=== PATIENT | male | born 1935 | race Caucasian/White ===

== ENCOUNTER 2016-07-01 05:57 | Inpatient (IN) | payer MEDICARE, OTHER ==
--- NOTE | 2016-06-19 09:53 | HP ---
PREOPERATIVE HISTORY AND PHYSICAL: DATE OF ADMISSION/SURGERY: 07/01/16 DATE OF OFFICE VISIT: 06/18/16 ATTENDING SURGEON: Dr. Mendoza. PROCEDURE: Right total hip replacement. CHIEF COMPLAINT: Right hip pain. HISTORY OF PRESENT ILLNESS: Mr. Ricardo is a 80-year-old gentleman who was approximately 1 year of increasing severe right hip pain. The patient has failed conservative measures and therefore has agreed to undergo a right total hip replacement with Dr. Mendoza on 07/01/16. PAST MEDICAL HISTORY: 1. Hypercholesterolemia. 2. BPH. 3. Osteoarthritis. 4. Hypothyroidism. 5. 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 6. History of hyponatremia. PAST SURGICAL HISTORY: 1. Hernia repair on the right. 2. Cataract removal on the right. 3. Hemorrhoidectomy. MEDICATIONS: \E\ 1. Naproxen 250 mg only tabs by mouth 2 times a day as needed for pain with food. 2. Levothyroxine sodium 50 mcg 1 by mouth everyday. 3. Atorvastatin calcium 10 mg take 1 by mouth at bedtime. 4. Finasteride 5 mg 1 tablet in the evening. 5. Tamsulosin 4 mg 1 by mouth daily. 6. Multivitamin 1 by mouth daily. 7. Tylenol PM Extra Strength 500/25 mg by mouth every night at bedtime as needed. 8. Glucosamine chondroitin sulfate 1000 mg 1 tablet by mouth daily. ALLERGIES: No known drug allergies. FAMILY HISTORY: Negative. SOCIAL HISTORY: Lives with , retired professor. The patient is a former. Smoked and quit actually 15 years ago. Occasionally continues alcohol. Denies illicit drug use. REVIEW OF SYSTEMS: General: Negative for fevers, chills, night sweats. No known anesthesia problems. HEENT: Negative for headache, lightheadedness or syncopal episodes. Integumentary: Negative for abrasions, lesions or open wounds. Cardiovascular: Negative for chest pain, palpitations or edema. Negative for hypertension. Pulmonary: Negative for shortness of breath with exertion, cough or COPD. GI: Negative for nausea, vomiting, diarrhea, constipation or GERD. : Negative for nocturia, urinary frequency, urgency or history of UTI or kidney problems. Positive for BPH. Musculoskeletal: Positive for right hip pain. Neuro: Negative for paresthesia, history of seizure, stroke or epilepsy. Endocrine: Negative for diabetes or thyroid disease. Hematologic: Negative for easy bruising, anemia, excessive bleeding, or history of DVTs. Infectious Disease: Negative for history of MRSA, hep C or HIV. PHYSICAL EXAMINATION GENERAL: A well-developed, well-nourished male in no acute distress. VITAL SIGNS: Height 64.5, weight 157, pulse 80, blood pressure 140/90, and BMI 25.7. HEENT: Normocephalic, atraumatic. PERRLA. Throat: Clear. NECK: Supple. PULMONARY: Lungs are clear to auscultation bilaterally. No wheezes, rhonchi or rales. CARDIAC: Regular rate and rhythm. S1, S2. No murmurs, rubs or gallops. No edema. ABDOMEN: Positive bowel sounds, soft and nontender. NEUROLOGIC: Alert and oriented x3. Cranial nerves grossly intact. Sensation is intact to light touch. MUSCULOSKELETAL: Right lower extremity skin is intact. Hip is nontender. Flexion to 110 degrees. Internal rotation is 0 degrees. External rotation is 35 degrees with significant groin pain. +5/5 dorsiflexion, and plantar flexion at the ankle, +2 dorsalis pedis pulse. Sensation intact distally to light touch. DIAGNOSTIC STUDIES/LABORATORY DATA: Multiple views of the right hip revealed [id number]-[id number] degenerative osteoarthritis with joint space narrowing, osteophyte formation and subchondral sclerosis. PLAN: The patient is scheduled to undergo a right total hip replacement with Dr. Mendoza on 07/01/16. He will return to the office 10 to 14 days postoperative followup for suture removal. A prescription for Percocet was e- prescribed to the patient's pharmacy for postoperative pain management. Prescription for Colace was sent for as needed for constipation. Prescription for Coumadin was sent postoperative DVTs prophylaxis. ELLIOT BENDER [id number]/[facility] #: [id number] [place]
[2016-07-01] MEDS ORDERED: Buffered Lidocaine 1% SYR 3ML* 3 ML/SYR SYRINGE INTRADERM ONE (06:00)
[2016-07-01] MEDS ORDERED: Famotidine IV* 10 MG/ML 2 ML (20 mg) IV ONE (06:00)
[2016-07-01] MEDS ORDERED: Scopolamine 1.5 mg* PATCH TRANSDERM ONE (06:00)
[2016-07-01] MEDS ORDERED: Dexamethasone IV* 4 MG/ML 1 ML (4 MG) IV SLOW PU ONE (06:00)
[2016-07-01] MEDS ORDERED: Famotidine IV* 10 MG/ML 2 ML (20 mg) ONE (06:26)
[2016-07-01] MEDS ORDERED: Scopolamine 1.5 mg* PATCH ONE (06:26)
[2016-07-01] MEDS ORDERED: Buffered Lidocaine 1% SYR 3ML* 3 ML/SYR SYRINGE ONE (06:26)
[2016-07-01] MEDS ORDERED: ceFAZolin 2 GM PREMIX (*) 2 GM/50 ML BAG IVPB ONE (06:26)
[2016-07-01] MEDS ORDERED: Dexamethasone IV* 4 MG/ML 1 ML (4 MG) ONE (06:26)
[2016-07-01] MEDS ORDERED: Midazolam* 1 MG/ML 5 ML VIAL (5 MG) ONE (07:19)
[2016-07-01] MEDS ORDERED: Morphine PF AMP (0.5MG/ML)* 5 MG/10 ML AMP ONE (07:19)
[2016-07-01] MEDS ORDERED: fentaNYL* 50 MCG/ML 2 ML VIAL (100 MCG VIAL) ONE (07:19)
[2016-07-01] MEDS ORDERED: Phenylephrine IV* 40 MCG/ML 10 ML SYRINGE ONE (07:49)
[2016-07-01] MEDS ORDERED: EPHEDrine (Pressors)* 50 MG/ML VIAL ONE (08:12)
[2016-07-01] MEDS ORDERED: Atropine 1MG/ML INJ* 1 ML VIAL ONE (08:16)
[2016-07-01] MEDS ORDERED: PROCHLORPERAZINE INJ 5 MG/ML 2 ML VIAL IV PRN ×2 (08:50→08:53)
[2016-07-01] MEDS ORDERED: fentaNYL* 50 MCG/ML 2 ML VIAL (100 MCG VIAL) IV PRN (08:50)
[2016-07-01] MEDS ORDERED: oxyCODONE TAB* 5 MG TAB PO PRN ×2 (08:50→08:53)
[2016-07-01] MEDS ORDERED: Acetaminophen IV 1GM/100ML * 100 ML IVPB ONE (08:50)
[2016-07-01] MEDS ORDERED: Naloxone* 0.4 MG/ML 1 ML VIAL IV PRN (08:53)
[2016-07-01] MEDS ORDERED: Nalbuphine* 20 MG/ML 1 ML VIAL IV PRN (08:53)
[2016-07-01] MEDS ORDERED: Ibuprofen TAB* 600 MG PO SCH ×2 (09:00)
[2016-07-01] MEDS ORDERED: Acetaminophen TAB* 325 MG PO SCH (09:00)
[2016-07-01] MEDS ORDERED: Midazolam* 1 MG/ML 2 ML VIAL (2 MG) ONE (09:12)
--- NOTE | 2016-07-01 10:03 | RAD ---
INDICATION: Right total hip replacement surgery. TECHNIQUE: An AP view of the pelvis was obtained in the operating room. FINDINGS: Postsurgical changes are noted in the right hip. There is an acetabular prostheses in place and a femoral prostheses template. Air is noted within the soft tissues adjacent to the right hip consistent with the patient's surgery. IMPRESSION: INTRAOPERATIVE CONTROL FILM.
[2016-07-01] MEDS ORDERED: Ibuprofen TAB* 600 MG ONE (10:13)
[2016-07-01] MEDS ORDERED: Acetaminophen IV 1GM/100ML * 100 ML ONE (10:13)
[2016-07-01] MEDS ORDERED: Bisacodyl SUPP* 10 MG SUPP PR PRN (10:26)
[2016-07-01] MEDS ORDERED: Ondansetron INJ* 2 MG/ML VIAL IV PRN (10:26)
[2016-07-01] MEDS ORDERED: Polyethylene Glycol 3350* 17 GM PACKET PO PRN (10:26)
[2016-07-01] MEDS ORDERED: diPHENhydraMINE IV* 50 MG/ML 1 ml VIAL (BENADRYL) IV PRN (10:26)
[2016-07-01] MEDS ORDERED: Magnesium Hydroxide LIQ* 30 ML UDC PO PRN (10:26)
[2016-07-01] MEDS ORDERED: Ondansetron TAB* 4 MG PO PRN (10:26)
--- NOTE | 2016-07-01 11:27 | RAD ---
Indication: Right hip bipolar arthroplasty 2 views of the right hip and an AP view the pelvis demonstrates right hip replacement in satisfactory position. Pelvic ring is intact. IMPRESSION: Right hip replacement in satisfactory position.
[2016-07-01] MEDS: D5W 1/2 NS 1000 ML BAG* 1,000 ML IV SCH (13:10)
[2016-07-01] MEDS: ceFAZolin 1 GM in Dextrose (*) 1 GM/50 ML BAG IVPB SCH ×2 (14:29→20:20)
[2016-07-01] MEDS: Ibuprofen TAB* 600 MG PO SCH ×2 (16:34→23:02)
[2016-07-01] MEDS ORDERED: Warfarin TAB(*) 10 MG PO ONE (17:00)
[2016-07-01 17:28] LABS: Urine Bacteria Absent (Absent); Urine Bilirubin Negative (Negative); Urine Glucose 3+(>=500 mg/dL) (Negative); Urine Nitrite Negative (Negative)
[2016-07-01] MEDS: Acetaminophen TAB* 325 MG PO SCH (17:56)
[2016-07-01] MEDS: Tamsulosin CAP* 0.4 MG PO SCH (17:56)
[2016-07-01] MEDS: Docusate CAP* 100 MG PO SCH (20:20)
[2016-07-01] MEDS: Atorvastatin* 10 MG TAB PO SCH (20:21)
[2016-07-02] MEDS: D5W 1/2 NS 1000 ML BAG* 1,000 ML IV SCH (00:02)
[2016-07-02] MEDS ORDERED: oxyCODONE/Acetamin 5/325 MG* TAB PO PRN (00:53)
[2016-07-02] MEDS ORDERED: oxyCODONE TAB* 5 MG TAB PO PRN (00:53)
[2016-07-02] MEDS ORDERED: Morphine INJ* 10 MG/ML 1 ML CARPUJECT IV PRN (00:54)
[2016-07-02] MEDS: Acetaminophen TAB* 325 MG PO SCH (02:26)
[2016-07-02] MEDS: ceFAZolin 1 GM in Dextrose (*) 1 GM/50 ML BAG IVPB SCH (02:26)
[2016-07-02] MEDS: Ibuprofen TAB* 600 MG PO SCH (05:10)
[2016-07-02 07:36] LABS: Hematocrit 28 % (42-52); Hemoglobin 9.3 g/dl (14.0-18.0); Mean Platelet Volume 8 um3 (7.4-10.4)
[2016-07-02] MEDS: Docusate CAP* 100 MG PO SCH ×2 (07:38→21:46)
[2016-07-02] MEDS: Levothyroxine TAB* 25 MCG TAB PO SCH (07:38)
--- NOTE | 2016-07-02 07:49 | PN ---
Progress Note - Progress Note SOAP: Subjective: [80 y/o male s/p R KARLO POD#1. Patient states woke up very confused this morning, remembers feeling confused if he was at home or in the hospital, feeling more alert now however asks if there is a bug on the wall and repeats questions. ] Objective: [General: Well appearing, NAD, repeats questions/ sentences, aware of location, person, place. MSK- PT pulses 2+ b/l, + equal dorsiflexion, plantarflexion b/l, NO erythema, warmth around surgical site, dressing intact. sensation grossly intact to light touch b/l LE's ] Vital Signs Temp 97.9 F 07/02/16 04:07 Pulse 70 07/02/16 04:07 Resp 16 07/02/16 04:07 BP 110/46 07/02/16 04:07 Pulse Ox 93 07/02/16 04:07 Intake & Output 07/01/16 07/02/16 07/02/16 18:59 06:59 18:59 Intake Total 5060 1635 Output Total 850 700 Balance 4210 935 Intake: IV Fluids 4200 992 D5W 1/2 NS 992 LR 4200 IVPB 113 ABX - CEFAZOLIN 113 Oral 860 530 Output: Beauchamp 350 700 Estimated Blood Loss 500 Laboratory Results - last 24 hr 07/01/16 07/02/16 07/02/16 17:10 06:37 06:40 Hgb 9.3 L Hct 28 L Plt Count 217 MPV 8 INR (Anticoag Therapy) 1.20 H Urine Color Yellow Urine Appearance Cloudy Urine pH 5.0 Ur Specific [place] 1.023 Urine Protein 1+(30 mg/dl) H Urine Ketones Trace H Urine Blood 2+ H Urine Nitrate Negative Urine Bilirubin Negative Urine Urobilinogen Negative Ur Leukocyte Esterase Negative Urine WBC (Auto) Trace(0-5/hpf) Urine RBC (Auto) 3+(>10/hpf) H Urine Bacteria Absent Hyaline Casts Present H Urine Glucose 3+(>=500 mg/dl) H Urine Ascorbic Acid * H Active Medications Generic Name Dose Route Start Last Admin Trade Name Freq PRN Reason Stop Dose Admin Acetaminophen 650 mg 07/02/16 10:30 Tylenol Tab* PO Q4H PRN fever, pain Acetaminophen 975 mg 07/01/16 18:30 07/02/16 02:26 Tylenol Tab* PO 07/02/16 10:29 975 mg 0230,1030,1830 REBECCA Administration Atorvastatin Calcium 10 mg 07/01/16 21:00 07/01/16 20:21 Lipitor* PO 10 mg 2100 REBECCA Administration Bisacodyl 10 mg 07/01/16 10:26 Dulcolax Supp* SD DAILY PRN constipation Diphenhydramine HCl 12.5 mg 07/01/16 10:26 Benadryl Iv* IV Q6H PRN PRURITIS Docusate Sodium 100 mg 07/01/16 21:00 07/02/16 07:38 Colace Cap* PO 100 mg BID REBECCA Administration Enoxaparin Sodium 40 mg 07/02/16 11:00 Lovenox(*) SUBCUT Q24H REBECCA Finasteride 5 mg 07/02/16 18:00 Proscar Tab* PO QPM REBECCA Dextrose/Sodium Chloride 1,000 mls @ 100 mls/hr 07/01/16 11:00 07/02/16 00:02 D5w 1/2 Ns 1000 Ml Bag* IV 100 mls/hr PER RATE REBECCA Administration Ibuprofen 600 mg 07/01/16 16:30 07/02/16 05:10 Motrin Tab* PO 07/02/16 10:29 600 mg 0430,1030,1630,2230 REBECCA Administration Lactulose 30 ml 07/01/16 21:00 07/02/16 07:39 Lactulose* PO Not Given BID [facility] Levothyroxine Sodium 50 mcg 07/02/16 09:00 07/02/16 07:38 Synthroid Tab* PO 50 mcg DAILY REBECCA Administration Magnesium Hydroxide 30 ml 07/01/16 10:26 Milk Of Magnesia Liq* PO Q6H PRN constipation Morphine Sulfate 5 mg 07/02/16 00:54 Morphine Inj (Syringe)* IV Q2H PRN PAIN - BREAKTHROUGH Ondansetron HCl 4 mg 07/01/16 10:26 Zofran Inj* IV Q6H PRN nausea Ondansetron HCl 4 mg 07/01/16 10:26 Zofran Tab* PO Q6H PRN NAUSEA Oxycodone HCl 5 mg 07/01/16 08:50 Roxycodone Tab* PO 07/02/16 08:51 ONCE PRN PAIN - MODERATE Oxycodone HCl 5 mg 07/01/16 08:53 Roxycodone Tab* PO 07/02/16 08:52 Q3H PRN Moderate Pain Oxycodone HCl 10 mg 07/02/16 00:53 Roxycodone Tab* PO Q4H PRN PAIN - SEVERE Oxycodone/Acetaminophen 1 tab 07/02/16 00:53 Percocet 5/325 Tab* PO Q4H PRN PAIN - MILD Oxycodone/Acetaminophen 2 tab 07/02/16 00:53 Percocet 5/325 Tab* PO Q4H PRN PAIN - MODERATE Pharmacy Profile Note 1 note 07/04/16 06:00 Scopolomine Patch Remove* PATCH OFF 07/04/16 06:01 ONCE ONE Polyethylene Glycol/Electrolytes 17 gm 07/01/16 10:26 Miralax* PO DAILY PRN Constipation Tamsulosin HCl 0.4 mg 07/01/16 18:00 07/01/16 17:56 Flomax Cap* PO 0.4 mg QPM REBECCA Administration Assessment: [80 y/o male s/p R KARLO POD#1.] Plan: [- DVT Prophy- Coumadin 10 mg 07/01/2015, 8mg 07/02/2015, continue lovenox - Post-op delerium- Continue precautions, continue to monitor. - PT/OT ]
[2016-07-02 08:00] LABS: BUN/Creatinine Ratio 15.8 (8-20); Calcium 8.3 mg/dL (8.6-10.3); EGFR African American 98.4 (>60); EGFR Non-African American 76.5 (>60)
[2016-07-02] MEDS ORDERED: Acetaminophen TAB* 325 MG PO PRN (10:30)
[2016-07-02] MEDS ORDERED: Enoxaparin(*) 40 MG/0.4 ML SYR SUBCUT SCH (11:00)
--- NOTE | 2016-07-02 11:35 | OP ---
OPERATIVE NOTE: DATE OF OPERATION: 07/01/16 - SSU 336-01. DATE OF : 37 SURGEON: Yumi Mendoza MD. EMERGENCY ROOM SPECIALIST: ELLIOT Graham. ANESTHESIOLOGIST: Dr. June. ANESTHESIA: Spinal. PRE-OP DIAGNOSIS: Severe end-stage degenerative osteoarthritis of the right hip joint. POST-OP DIAGNOSIS: Severe end-stage degenerative osteoarthritis of the right hip joint. OPERATIVE PROCEDURE: Right total hip arthroplasty. INDICATIONS/BRIEF HISTORY: Mr. Ricardo is a 80-year-old gentleman with years of increasingly severe right hip pain. Radiographs confirmed [id number] contact and severe end-stage arthritis. He failed conservative treatment with antiinflammatories, physical therapy, and ambulatory assistive devices. He wished to proceed with right total hip arthroplasty due to decreased quality of life and constant pain. Informed consent was obtained from the patient. He understood the risks of the procedure included, but were not limited to, bleeding, infection, damage to nearby structures, continued pain, need for further surgery, intraoperative fracture, nerve palsy, hardware failure or loosening, dislocation, leg length discrepancy, stroke, heart attack, blood clot , and . He wished to proceed. FINDINGS: Intraoperatively, the patient was noted to have severe end-stage arthritis of the hip joint with complete loss of cartilage in the acetabulum and along the femoral head and neck. COMPLICATIONS: None. ESTIMATED BLOOD LOSS: 300 mL. SPECIMENS: Femoral head and acetabular reaming sent to pathology. HARDWARE USED: This is uncemented Rhina total hip arthroplasty hardware. For the acetabulum, a Tritanium cluster hole shell 52D. An MDM liner cement 38D was used. For the femur, an Accolade TMZF 127-degree neck, size 3 was used. A 22.2, +0 LFIT V40 femoral head with an MDM X3 insert, 22.2/38/38D. DESCRIPTION OF PROCEDURE: Mr. Ricardo was identified in the preanesthesia unit. His right lower extremity was marked as the correct operative site. Informed consent was signed and placed in the chart. The patient was taken to the operating room and placed under spinal anesthesia. A Beauchamp catheter was placed. The patient was placed in the left lateral decubitus position on the peg board and all bony prominences were well padded. Right lower extremity was prepped and draped in the usual sterile fashion. Preop time-out was made to correctly identify the patient, side, and site. Appropriate perioperative antibiotics were given within 1 hour of incision. A 12-cm posterior hip incision was made with a #10 blade and carried down to the lateral fascial layer. Lateral fascial layer was then incised in line with the skin incision. Charnley retractor was placed and the posterior aspect of the hip joint was visualized. The piriformis and conjoint tendons were identified and elevated off the posterolateral femur using electrocautery. These were tagged with two #5 Ethibond. Next, electrocautery was used to make a standard posterolateral capsular flap. The capsular flap was then tagged with two #5 Ethibond. The hip was carefully dislocated. Lesser trochanter to center of the femoral head measured 55 mm. Oscillating saw was used to make the appropriate femoral neck cut. The femoral head was sent to pathology. The femur was carefully retracted anteriorly. After appropriate placement of retractor, the acetabulum was easily visualized. There was full loss of cartilage along the entire acetabulum. The acetabulum was sequentially reamed up to a size 51. A 51 trial had excellent fit. A 52 Tritanium cluster hole shell was chosen. This was impacted into the acetabulum without difficulty. There was excellent stability of the cup. There was appropriate anteversion and abduction angle. The MDM 38D liner was used. This was chosen as the final implant and impacted into the acetabulum. Stability of the liner was checked and rechecked and it was noted to be stable. After appropriate placement of the retractor, the proximal femur was easily visualized. Canal finder was used to enter the proximal femur. Femur was sequentially broached up to a size 3. The size 3 had good fit and appropriate anteversion. A 127-degree neck as well as a 38 MDM trial head was chosen. The hip was reduced and taken through range of motion. The hip was stable in all positions. There was appropriate soft tissue tension and leg length. The hip was carefully dislocated. All trials were carefully removed. Final implant chosen was an Accolade TMZF size 3 with a 127-degree neck. This femoral stem was impacted into the femoral canal without difficulty. There was excellent stability and appropriate anteversion. A 22.2, +0 LFIT V40 femoral head with an MDM X3 insert of 22.2/38/38D was chosen. This was impacted onto the femoral neck without difficulty. The hip was reduced and taken through range of motion. The hip was stable in all positions with good soft tissue tension and appropriate leg length. The hip was copiously irrigated with sterile saline. Previously tagged capsule and tendons were reapproximated to the posterolateral femur through two trochanteric drill holes. The fascia layer was reapproximated using interrupted #1 Vicryl. The rest of the incision was closed in a layered fashion using 0 and 2-0 Vicryl. Skin was closed using running 3-0 Monocryl suture and Dermabond. Sterile 4x4s and paper tape were used to cover the incision. The patient's anesthesia was reversed without difficulty. He was taken to the PACU in stable condition. Intended weightbearing will be weightbearing as tolerated. Intended DVT prophylaxis will be Coumadin with a Lovenox bridge. [id number]/[facility] #: [id number] [place]
[2016-07-02] MEDS: oxyCODONE/Acetamin 5/325 MG* TAB PO PRN (15:50)
[2016-07-02] MEDS: Tamsulosin CAP* 0.4 MG PO SCH (16:55)
[2016-07-02] MEDS ORDERED: Warfarin TAB(*) 4 MG PO ONE (17:00)
[2016-07-02] MEDS ORDERED: Calcium Carbonate CHEW TAB* 500 MG (TUMS) PO PRN (17:41)
[2016-07-02] MEDS ORDERED: Finasteride TAB* 5 MG PO SCH (18:00)
[2016-07-02] MEDS: Atorvastatin* 10 MG TAB PO SCH (21:46)
[2016-07-03 07:08] LABS: Hematocrit 27 % (42-52); Hemoglobin 9.1 g/dl (14.0-18.0)
[2016-07-03] MEDS: oxyCODONE/Acetamin 5/325 MG* TAB PO PRN (07:20)
[2016-07-03] MEDS: Docusate CAP* 100 MG PO SCH (08:36)
[2016-07-03] MEDS: Levothyroxine TAB* 25 MCG TAB PO SCH (08:37)
--- NOTE | 2016-07-03 09:06 | PN ---
Progress Note - Progress Note SOAP: Subjective: [Pt. reports doing well. Feels his confusion has abated. Had a BM last night. Would like to go home. Has done stairs with PT. Pain managed well with po meds.] Objective: [A and O x 3, NAD R hip dressing changed. No drainage. Mild/mod nica-incisional ecchymosis. No erythema. Calf soft, NT. Distal NV status intact. Vital Signs: Temp Pulse Resp BP Pulse Ox 97.8 F 70 18 113/64 98 07/03/16 07:13 07/03/16 07:13 07/03/16 07:20 07/03/16 07:13 07/03/16 07:13 Laboratory Results - last 24 hr 07/03/16 07/03/16 06:26 06:26 Hgb 9.1 L Hct 27 L INR (Anticoag Therapy) 2.30 H ] Assessment: [s/p R KARLO POD # 2 doing well] Plan: [D/C pt home Hold coumadin today, 2 mg tomorrow Posterior hip precautions, WBAT LLE Percocet for pain f/u with Dr. Mendoza in 2 weeks]
[2016-07-03 11:41] VITALS: BP 142/49
[2016-07-04] MEDS ORDERED: Scopolamine PATCH Remove* 1 NOTE MISC PATCH OFF ONE (06:00)
--- NOTE | 2016-07-05 12:30 | DS ---
DISCHARGE SUMMARY: DATE OF ADMISSION: 07/01/16 DATE OF DISCHARGE: 07/03/16 ADMITTING PHYSICIAN: Dr. Mendoza. ADMITTING DIAGNOSIS: Right hip osteoarthritis. DISCHARGE DIAGNOSIS: Status post right total hip arthroplasty. PROCEDURE: Right total hip arthroplasty. CONSULTANTS: Physical Therapy and Occupational Therapy. BRIEF HISTORY: Mr. Ricardo is a 80-year-old male with severe degenerative osteoarthritis of his right hip. He failed conservative treatment measures and elected to undergo right total hip arthroplasty on 07/01/[address] Mendoza. HOSPITAL COURSE: Mr. Ricardo was admitted to [facility] on . He underwent an uncomplicated right total hip arthroplasty. Postoperatively , he recovered on the short-stay surgical unit. His Beauchamp catheter was removed on postoperative day 1 and he was able to urinate on his own. He had a bowel movement on the evening of postoperative day 1. He advanced to a regular diet without difficulty. His pain was well controlled with Percocet. He was restarted on home medications. His vital signs and labs remained stable. He was stable to bear weight as tolerated on the right lower extremity. He advanced appropriately with physical therapy and occupational therapy. His DVT prophylaxis was bridged with Lovenox and Coumadin until he reached therapeutic INR range. By postoperative day #2, he was orthopedically and medically stable for discharge home with services. PHYSICAL EXAMINATION: General: On examination, the patient is noted to be calm and cooperative, in no acute distress. He is alert and oriented x3. Vital Signs: On the day of discharge, temperature 97.8 Fahrenheit, pulse rate 70 , O2 sat 98% on room air, and blood pressure 113/64. Extremities: Examination of the right lower extremity demonstrates dressing overlying the right hip, which is clean, dry, and intact. His thigh is mildly swollen, but compressible. Distally, he has +2 DP pulse, and gross motor and neurovascular function is intact. LABORATORY DATA: On the day of discharge, hemoglobin 9.1, hematocrit 27. INR 2.30. RADIOGRAPHS: Postoperative radiographs of the right hip demonstrate right total hip arthroplasty with satisfactory prosthesis placement and no acute bony abnormalities. DISCHARGE MEDICATIONS: 1. Naproxen 250 mg twice a day, which the patient will hold and restart when finished taking Coumadin. 2. Levothyroxine sodium 50 mcg daily. 3. Atorvastatin calcium 10 mg daily. 4. Finasteride 5 mg daily. 5. Tamsulosin 4 mg daily. 6. Multivitamin daily. 7. Tylenol PM Extra Strength as needed p.r.n. q.h.s. The patient will be careful not to exceed 4000 mg of Tylenol between Tylenol PM and Percocet 5/325. 8. Glucosamine chondroitin sulfate 100 mg daily. 9. Coumadin 2 mg tablet. The patient will hold Coumadin today and take 2 mg of Coumadin tomorrow on Tuesday. 10. Percocet 5/325 one to two tabs p.r.n. pain q.4 to 6 hours. 11. Colace 100 mg p.o. t.i.d. p.r.n. constipation. CONDITION ON DISCHARGE: Stable. DISCHARGE INSTRUCTIONS: Mr. Ricardo is a 80-year-old male, postoperative day #2 status post right total hip arthroplasty, which is uncomplicated. He is orthopedically and medically stable to home with services. He has stable vital signs and labs. He has been restarted on his home medications. He will hold Coumadin today and take 2 mg of Coumadin on Tuesday. He will have his INR rechecked on Tuesday and dosage adjusted appropriately. He will have INR draws on Mondays and with visiting nurse services. He will remain weightbearing as tolerated on the right lower extremity. He will have home physical therapy twice a day. He will take Percocet for pain control and Colace up to 3 times a day for constipation. He will follow up in the office with Dr. Mendoza in 10 to 14 days for incision check and suture removal. He was instructed to call Dr. Mendoza or go immediately to the emergency room should he develop any new fevers, chills, or incision pain, redness or drainage. He was instructed to go immediately to the emergency room should he develop chest pain or shortness of breath. ELLIOT MARKHAM [id number]/[facility] #: [id number] MTDBrennan
== END 2016-07-03 12:20 | disposition home health service (06) | DRG 470 ==
LOC: INTOOBSV 05:57 → OBSVTOIN 05:57 → AA 05:57 → SSU 10:26
PROVIDERS: ADMIT Orthopaedic Surgery Adult Reconstructive Orthopaedic Surgery; ATTEND Orthopaedic Surgery Adult Reconstructive Orthopaedic Surgery
PROC: 0SR90JA Replacement of Right Hip Joint with Synthetic Substitute, Uncemented, Open Approach (ICD-10-PCS; principal; 2016-07-01 07:30)
DX: M16.11 Unilateral primary osteoarthritis, right hip (principal); F05 Delirium due to known physiological condition; E78.00 Pure hypercholesterolemia, unspecified; N40.0 Benign prostatic hyperplasia without lower urinary tract symptoms; E03.9 Hypothyroidism, unspecified; M51.26 Other intervertebral disc displacement, lumbar region; Z98.41 Cataract extraction status, right eye; Z87.891 Personal history of nicotine dependence; Z72.89 Other problems related to lifestyle
CPT/HCPCS: 36415; 72170; 80048; 81003; 81015; 85014; 85018; 85049; 85610; 87086; 88304; 88311; A9270-GY; C1776; J0461; J0690; J1100; J1650; J2250; J3010

== ENCOUNTER 2016-08-17 16:32 | Emergency (ER) | payer MEDICARE, OTHER ==
[2016-08-17 17:43] VITALS: BP 168/85
--- NOTE | 2016-08-17 19:25 | UC ---
Ear Complaint HPI - HPI Summary HPI Summary: THIS AFTERNOON HAS FELT WAX BUILDUP IN RIGHT EAR. OFTEN GETS EARWAX IMPACTION. TRIED EARWAX REMOVAL DROPS WITH NO SUCCESS. WEARS HEARING AIDS - History of Current Complaint Chief Complaint: UCEar Stated Complaint: EARS CLOGGED Time Seen by Provider: 08/17/16 18:38 Hx Obtained From: Patient Onset/Duration: Sudden Onset, Lasting Hours, Still Present Severity Initially: Moderate Severity Currently: Moderate Associated Signs/Symptoms: Positive: Hearing Loss - Allergies/Home Medications Allergies/Adverse Reactions: Allergies Allergy/AdvReac Type Severity Reaction Status Date / Time No Known Allergies Allergy Verified 07/01/16 06:34 PMH/Surg Hx/FS Hx/Imm Hx Previously Healthy: Yes Endocrine History Of: Denies: Diabetes, Thyroid Disease Cardiovascular History Of: Denies: Cardiac Disorders, Hypertension, Pacemaker/ICD Respiratory History Of: Denies: COPD, Asthma GI/ History Of: Denies: Ulcer, Renal Disease - Surgical History Surgical History: Yes Surgery Procedure, Year, and Place: RIGHT CATARACT, 2008, [facility] 2006 [facility] , 1991. Lt CATARACT -2013. HEMORRHOID. hip replacement - Family History Known Family History: Positive: None Negative: Respiratory Disease - Social History Occupation: Retired Lives: With Family Alcohol Use: Occasionally Substance Use Type: None Smoking Status (MU): Never Smoked Tobacco Have You Smoked in the Last Year: No - Immunization History Most Recent Influenza Vaccination: 2016 Most Recent Tetanus Shot: 2016 Most Recent Pneumonia Vaccination: unknown Review of Systems Constitutional: Negative Skin: Negative Eyes: Negative ENT: Ear Ache Respiratory: Negative Cardiovascular: Negative Gastrointestinal: Negative Genitourinary: Negative Motor: Negative Neurovascular: Negative Musculoskeletal: Negative Neurological: Negative Psychological: Negative All Other Systems Reviewed And Are Negative: Yes Physical Exam Triage Information Reviewed: Yes Appearance: Well-Appearing, No Pain Distress, Well-Nourished Vital Signs: Initial Vital Signs Temp 97.9 F 08/17/16 17:40 Pulse 66 08/17/16 17:40 Resp 18 08/17/16 17:40 BP 168/85 08/17/16 17:40 Pulse Ox 97 08/17/16 17:40 ENT: Positive: Pharynx normal, TMs normal - STATUS POST 1) FB REMOVAL AND 2) EAR IRRIGATION, Other: - #1 FOREIGN BODY IN RIGHT EAR (HEARING AID EARBUD): REMOVED USING ALLIGATOR FORCEPS #2 UNDERLYING BILATERAL CERUMEN IMPACTION #3 MILDLY EDEMATOUS BILATERAL EXTERNAL AUDITORY CANALS. Negative: Hearing grossly normal Dental Exam: Normal Neck exam: Normal Neck: Positive: Supple, Nontender, No Lymphadenopathy Respiratory Exam: Normal Respiratory: Positive: Chest non-tender, Lungs clear, Normal breath sounds, No respiratory distress, No accessory muscle use Cardiovascular Exam: Normal Cardiovascular: Positive: RRR, No Murmur, Pulses Normal, Brisk Capillary Refill Abdominal Exam: Normal Abdomen Description: Positive: Nontender, No Organomegaly Musculoskeletal Exam: Normal Musculoskeletal: Positive: Strength Intact, ROM Intact, No Edema Neurological Exam: Normal Psychological Exam: Normal Psychological: Positive: Normal Response To Family Skin Exam: Normal Ear Complaint Course/Dx - Differential Dx/Diagnosis Differential Diagnosis/HQI/PQRI: Cellulitis, Cerumen Impaction, Foreign Body, Otitis Externa, Otitis Media, Perforated TM, URI Provider Diagnoses: 1) RIGHT EAR FOREIGN BODY REMOVAL. 2) BILATERAL CERUMEN IMPACTION. 3) BILATERAL OTITIS EXTERNA Discharge - Discharge Plan Condition: Stable Disposition: HOME Prescriptions: Neomyc/Polym/HC 1% OTIC SUSP* [Cortisporin Otic Susp 1%*] 4 drop BOTH EARS QID # 1 btl Patient Education Materials: Cerumen Impaction (ED), Ear Foreign Body (ED) Referrals: Alan Pulliam MD [Primary Care Provider] -
== END 2016-08-17 19:07 | disposition home or self-care (01) ==
LOC: UCEAST 16:32
DX: T16.1XXA Foreign body in right ear, initial encounter (principal); X58.XXXA Exposure to other specified factors, initial encounter; Y93.9 Activity, unspecified; Y92.9 Unspecified place or not applicable; H61.23 Impacted cerumen, bilateral; H60.93 Unspecified otitis externa, bilateral; Z98.42 Cataract extraction status, left eye; Z98.41 Cataract extraction status, right eye; Z96.649 Presence of unspecified artificial hip joint
CPT/HCPCS: 99213; G0463

== ENCOUNTER 2016-08-18 08:55 | Emergency (ER) | payer MEDICARE, OTHER ==
[2016-08-18 09:05] VITALS: BP 100/70
--- NOTE | 2016-08-18 09:50 | UC ---
Ear Complaint HPI - HPI Summary HPI Summary: SEEN LAST NIGHT FOR FOREIGN BODY REMOVAL FROM RIGHT EAR AND FOR EAR IRRIGATION. SAW SALES SPECIALIST TODAY. STILL HAS CERUMEN IN BOTH EARS. WOULD LIKE TO HAVE CERUMEN REMOVED. - History of Current Complaint Chief Complaint: UC Stated Complaint: PLUGGED EARS Time Seen by Provider: 08/18/16 09:09 Hx Obtained From: Patient Onset/Duration: Lasting Days, Still Present Severity Initially: Moderate Severity Currently: Mild Associated Signs/Symptoms: Positive: Hearing Loss, Trauma to Ear - Allergies/Home Medications Allergies/Adverse Reactions: Allergies Allergy/AdvReac Type Severity Reaction Status Date / Time No Known Allergies Allergy Verified 07/01/16 06:34 PMH/Surg Hx/FS Hx/Imm Hx Previously Healthy: Yes Endocrine History Of: Denies: Diabetes, Thyroid Disease Cardiovascular History Of: Denies: Cardiac Disorders, Hypertension, Pacemaker/ICD Respiratory History Of: Denies: COPD, Asthma GI/ History Of: Denies: Ulcer, Renal Disease - Surgical History Surgical History: Yes Surgery Procedure, Year, and Place: RIGHT CATARACT, 2008, [facility] 2006 [facility] , 1991. Lt CATARACT -2013. HEMORRHOID. hip replacement - Family History Known Family History: Positive: None Negative: Respiratory Disease - Social History Occupation: Retired Lives: With Family Alcohol Use: Occasionally Substance Use Type: None Smoking Status (MU): Never Smoked Tobacco Have You Smoked in the Last Year: No - Immunization History Most Recent Influenza Vaccination: 2016 Most Recent Tetanus Shot: 2016 Most Recent Pneumonia Vaccination: unknown Review of Systems Constitutional: Negative Skin: Negative Eyes: Negative ENT: Ear Ache Respiratory: Negative Cardiovascular: Negative Gastrointestinal: Negative Genitourinary: Negative Motor: Negative Neurovascular: Negative Musculoskeletal: Negative Neurological: Negative Psychological: Negative All Other Systems Reviewed And Are Negative: Yes Physical Exam Triage Information Reviewed: Yes Appearance: Well-Appearing, No Pain Distress, Well-Nourished Vital Signs: Initial Vital Signs Temp 98.8 F 08/18/16 08:59 Pulse 87 08/18/16 08:59 Resp 16 08/18/16 08:59 BP 100/70 08/18/16 08:59 Pulse Ox 98 08/18/16 08:59 Vital Signs Reviewed: Yes Eye Exam: Normal Eyes: Positive: Conjunctiva Clear ENT: Positive: Other: - BILATERAL CERUMEN IMPACTION, MILD INFLAMMATION OF EAC Dental Exam: Normal Neck exam: Normal Respiratory Exam: Normal Respiratory: Positive: Chest non-tender, Lungs clear, Normal breath sounds, No respiratory distress, No accessory muscle use Cardiovascular Exam: Normal Cardiovascular: Positive: RRR, No Murmur, Pulses Normal Abdominal Exam: Normal Musculoskeletal Exam: Normal Musculoskeletal: Positive: Strength Intact, ROM Intact Neurological Exam: Normal Psychological Exam: Normal Psychological: Positive: Normal Response To Family Skin Exam: Normal Ear Complaint Course/Dx - Course Course Of Treatment: SPOKE WITH COLLIN MILLER, URGENT ADMINISTRATIVE OFFICE ASSISTANT, ABOUT HAVING TODAY'S VISIT REMOVED FROM BILLING, DUE TO INCOMPLETE IRRIGATION OF EARS LAST NIGHT. EARS SUCCESSFULLY IRRIGATED TODAY, PATIENT TOLERATED PROCEDURE WELL. - Differential Dx/Diagnosis Differential Diagnosis/HQI/PQRI: Otitis Externa, Otitis Media, Perforated TM Provider Diagnoses: CERUMEN IMPACTION Discharge - Discharge Plan Condition: Stable Disposition: HOME Patient Education Materials: Cerumen Impaction (ED) Referrals: Alan Pulliam MD [Primary Care Provider] - Additional Instructions: WE ARE SORRY THAT WE WERE UNABLE TO RESOLVE THE PROBLEM COMPLETELY YESTERDAY. THANK YOU FOR RETURNING TO OUR OFFICE AND GETTING IT TAKEN CARE OF SO PROMPTLY. IF YOU RECEIVE A BILL FOR THIS 08/18/16 VISIT, PLEASE CALL THE URGENT ADMINISTRATIVE OFFICE ASSISTANT, COLLIN MILLER AT [phone], SO THAT WE CAN RESOLVE THE CHARGES. THANK YOU AGAIN FOR YOUR VISIT
== END 2016-08-18 09:49 | disposition home or self-care (01) ==
LOC: UCEAST 08:55
DX: H61.23 Impacted cerumen, bilateral (principal)
CPT/HCPCS: 99213; G0463

== ENCOUNTER 2017-12-19 08:32 | Emergency (ER) | payer MEDICARE, OTHER ==
[2017-12-19 08:45] VITALS: BP 158/85
--- NOTE | 2017-12-19 10:22 | UC ---
Santos Daigle Jacob, scribed for Francesco Barton MD on 12/19/17 at 0857 . General HPI - HPI Summary HPI Summary: Pt is a 82 y/o male presenting w/ bilateral cerumen impaction. He states that he has no ear pain and is just having trouble hearing. Pt claims he has a history of cerumen impaction and uses hearing aides. - History of Current Complaint Stated Complaint: EAR COMPLAINT Time Seen by Provider: 12/19/17 08:36 Hx Obtained From: Patient Timing: Constant Current Severity: None - pt denies ear pain Associated Signs & Symptoms: Positive: Fever - negative Similar Episode/Dx as: bilateral cerumen impaction - Allergy/Home Medications Allergies/Adverse Reactions: Allergies Allergy/AdvReac Type Severity Reaction Status Date / Time No Known Allergies Allergy Verified 12/30/16 09:09 Home Medications: Home Medications Naproxen Sod/Diphenhydramine [Aleve PM 220-25 mg] 12/19/17 [History] Naproxen Sodium [Aleve] 12/19/17 [History] PMH/Surg Hx/FS Hx/Imm Hx Endocrine History: Diabetes - Negative, Thyroid Disease, Dyslipidemia Cardiovascular History: Hypertension - Negative Respiratory History: COPD - Negative, Asthma - Negative GI/ History: Ulcer - Negative, Other - Prostrate problems, BPH Other GI/ History: Prostate problems, BPH Other History Of: HIV - Negative, Hepatitis B - Negative, Hepatitis C - Negative - Surgical History Surgical History: Yes Surgery Procedure, Year, and Place: RIGHT CATARACT, 2008, [facility] 2007 [facility] , 1991. Lt CATARACT -2013. HEMORRHOID. hip replacement-RIGHT 06/2016 - Family History Known Family History: Positive: None Negative: Respiratory Disease - Social History Alcohol Use: Occasionally Substance Use Type: None Smoking Status (MU): Never Smoked Tobacco Have You Smoked in the Last Year: No - Immunization History Most Recent Influenza Vaccination: 2016 Most Recent Tetanus Shot: 2016 Most Recent Pneumonia Vaccination: unknown Review of Systems Constitutional: Fever - Negative ENT: Ear Ache - Negative, Other - Bialteral cerumen impaction All Other Systems Reviewed And Are Negative: Yes Physical Exam - Summary Physical Exam Summary: General: well-appearing, no pain distress Skin: warm, color reflects adequate perfusion, dry Head: normal Eyes: EOMI, FRANCIS ENT: Bilateral cerumen impaction. Diminished hearing. Neck: supple, nontender Respiratory: CTA, breath sounds present Cardiovascular: RRR Abdomen: soft, nontender Bowel: present Musculoskeletal: normal, strength/ROM intact Neurological: sensory/motor intact, A&O x3 Psychological: affect/mood appropriate Triage Information Reviewed: Yes Vital Signs: Initial Vital Signs Temp 98.5 F 12/19/17 08:35 Pulse 77 12/19/17 08:35 Resp 16 12/19/17 08:35 BP 158/85 12/19/17 08:35 Pulse Ox 98 12/19/17 08:35 Vital Signs Reviewed: Yes Course/Dx - Course Course Of Treatment: BP noted and advised to follow up with PCP. Medications reviewed. CERUMEN GONE AFTER FLUSHING. HEARING IMPROVED. F/U PMD, RETURN SOONER IF WORSE. - Differential Dx - Multi-Symptom Provider Diagnoses: B/L CERUMEN IMPACTION. Elevated BP without dx of HTN Discharge - Sign-Out/Discharge Documenting (check all that apply): Discharge/Admit/Transfer - Discharge Plan Condition: Stable Disposition: HOME Patient Education Materials: Cerumen Impaction (ED) Referrals: Alan Pulliam MD [Primary Care Provider] - Additional Instructions: Your blood pressure was elevated during todays visit; please follow up with your primary care provider within a week for further evaluation. FOLLOW UP WITH YOUR DOCTOR. YOU CAN USE OVER THE COUNTER EAR DROPS SUCH DEBROX TO HELP AVOID CERUMEN IMPACTION IN THE FUTURE. GET RECHECKED FOR ANY WORSENING OF YOUR CONDITION OR QUESTIONS OR CONCERNS. - Billing Disposition and Condition Condition: STABLE Disposition: Home The documentation as recorded by the Santos victoria Jacob accurately reflects the service I personally performed and the decisions made by me, Francesco Barton MD.
== END 2017-12-19 09:15 | disposition home or self-care (01) ==
LOC: UCEAST 08:32
DX: H61.23 Impacted cerumen, bilateral (principal); R03.0 Elevated blood-pressure reading, without diagnosis of hypertension; Z96.641 Presence of right artificial hip joint
CPT/HCPCS: 69210; 99212; 99213; G0463

== ENCOUNTER 2019-04-17 01:01 | Emergency (ER) | payer MEDICARE, OTHER ==
[2019-04-17] MEDS ORDERED: NS 0.9% 1000 ML** 1,000 ML IV ONE (01:02)
--- OUTSIDE RECORDS SUMMARY | 2019-04-17 01:13 | XMS REPORT | Continuity of Care Document ---
:1935 External Reference #:[id number] Author Name Pool Solares M.D. (transmitted by agent of provider Melany Cleary) Address [address], [place] [address] Care Team Providers Name Role Phone Evi Caldwell MD - Surgery of the Care Team Information Hairspring Studder Hand [facility] Physical Therapy Care Team Information Hairspring Studder Colbert - Physical Therapist Lauren Sheppard MD - Care Team Information Hairspring Studder [phone] Dermatology Jose Willard MD - Ophthalmology Care Team Information Hairspring Studder [phone] Pain Clinic - Pain Care Team Information Hairspring Studder [phone] Yumi Mendoza MD - Adult Care Team Information Hairspring Studder [phone] Reconstructive Orthopaedic Surgery Beatriz Vásquez MD - Internal Medicine Care Team Information Hairspring Studder [phone] Problems Active Problems Provider Date Displacement of lumbar intervertebral Alan Pulliam M.D.,FACP Onset: disc without myelopathy Acquired hypothyroidism Alan Pulliam M.D.,FACP Onset: 11/19/2014 Pure hypercholesterolemia Alan Pulliam M.D.,FACP Onset: 10/11/2007 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 Onset: 02/09/2016 the pelvic region and thigh Prosthetic arthroplasty of the hip Yumi Mendoza M.D. Onset: 08/11/2016 Impaired fasting glycaemia Alan Pulliam M.D.,FACP Onset: 10/29/2016 Disturbance in speech rhythm Pool Solares M.D. Onset: 07/18/2017 Amnesia Pool Solares M.D. Onset: 10/14/2017 Dementia of frontal lobe type Pool Solares M.D. Onset: 04/27/2018 Expressive language disorder Pool Solares M.D. Onset: 04/27/2018 Primary progressive apraxia of speech Alan Pulliam M.D.,FACP Onset: 12/2017 Note: possible Social History Type Date Description Comments Sex Unknown Tobacco Use Start: Unknown Never Smoked Cigarettes Tobacco Use Start: Unknown End: Former Pipe Smoker, Unknown Smoked 2 Pipes Daily Smoking Status Reviewed: 03/01/19 Former Pipe Smoker, Smoked 2 Pipes Daily ETOH Use 05/16/2018 Occasionally consumes alcohol Recreational Drug Use Denies Drug Use Tobacco Use Start: Unknown End: Patient is a former Smoked pipe and Unknown smoker cigars 15 yrs ago Allergies, Adverse Reactions, Alerts Description No Known Drug Allergies Medications Active Medications SIG Qnty Indications Ordering Provider Date Memantine HCL take 1 pill twice a 60tabs G31.09 Pool Solares, 2018 10mg day M.DLeobardo Tablets Amlodipine Besylate 1 by mouth every 60tabs I10 Beatriz Vásquez MD 12/20/2018 day 10mg Tablets Levothyroxine 1 by mouth every 90tabs Beatriz Vásquez MD 11/24/2018 Sodium day 50mcg Tablets Shingrix 0.5 milliliters 2units Alan Morelos 11/08/2017 50mcg intramuscular now Freddy Pulliam,FACP Suspension Rec and 2-3 months later repeat Flomax 1 by mouth in the 90caps N40.0 Alan Moreols 04/09/2016 0.4mg evening Freddy Pulliam,FACP Capsules Atorvastatin take 1 tablet by 90tabs E78.2 Alan Morelos 06/30/2011 Calcium mouth at bedtime Freddy Pulliam,FACP 10mg Tablets Finasteride 1 tablet in evening N40.0 Efrain, Jc, 5mg Tablets Multi-Vitamin 11/17/18 reports 100tabs Z01.818 Unknown takes randomly 1 po Tablets qd (inconsistent) Glucosamine/Chondro 1 tablet daily M16.11 Unknown itin Sulfate 1000mg Tablets History Medications Amlodipine Besylate 1 by mouth every 30tabs Beatriz Vásquez MD 12/06/2018 - 5mg day 12/20/2018 Tablets Immunizations CPT Code Status Date Vaccine Reaction Lot # [id number] Given 04/03/2018 Influenza Virus Vaccine, [id number] Quadrivalent, Split, Preservative Free 07381 Given 03/04/2017 Influenza Virus Vaccine, [id number] Quadrivalent, Split, Preservative Free 61151 Given 06/02/2016 Tetanus And Diptheria (Td) [id number] For Adult Use Preservative Free 25940 Given 03/16/2016 Influenza Virus Vaccine, no reaction noted .... [id number] Quadrivalent, Split, hh Preservative Free 87631 Given 03/21/2015 Influenza Virus Vaccine, [id number] Quadrivalent, Split, Preservative Free 74583 Given 01/08/2015 Pneumococcal Conjugate [id number] Vaccine 13 Valent For Intramuscular Use 26328 Given 04/05/2013 Flu Vaccine Split Virus Preservative Free For Indiv 3Yr Older 36061 Given 04/05/2012 Fluzone High Dose 07546 Given 04/05/2011 Influenza Virus 3Yrs & Over 75808 Given 04/05/2010 Influenza Virus 3Yrs & Over 64554 Given 05/15/2008 Zoster (Zostavax) [id number] 42269 Given 09/01/2006 Tdap - Tetanus/Diptheria/Acellular Pertussis 82511 Given 08/06/2005 Pneumonia Vaccine Vital Signs Date Vital Result Comment 03/01/2019 10:46am Height 64.5 inches 5'4.50" Weight 155.00 lb Heart Rate 68 /min BP Systolic 138 mmHg BP Diastolic 70 mmHg BMI (Body Mass Index) 26.2 kg/m2 01/09/2019 9:43am Height 64.5 inches 5'4.50" Weight 159.00 lb Heart Rate 72 /min BP Systolic Sitting 141 mmHg BP Diastolic Sitting 74 mmHg Body Temperature 97.5 F O2 % BldC Oximetry 97 % BMI (Body Mass Index) 26.9 kg/m2 Results Test Date Facility Test Result H/L Range Note Comp Metabolic 12/20/2018 [facility] Sodium 138 mmol/L Normal 135-[address] [place] [address] [phone] Potassium 4.0 mmol/L Normal 3.5-5.0 Chloride 102 mmol/L Normal 101-111 Co2 Carbon Dioxide 30 mmol/L Normal 22-32 Anion Gap 6 mmol/L Normal 2-11 Glucose 118 mg/dL High 70-100 Blood Urea Nitrogen 11 mg/dL Normal 6-24 Creatinine 0.87 mg/dL Normal 0.67-1.17 BUN/Creatinine Ratio 12.6 Normal 8-20 Calcium 9.5 mg/dL Normal 8.6-10.3 Total Protein 6.4 g/dL Normal 6.4-8.9 Albumin 4.2 g/dL Normal 3.2-5.2 Globulin 2.2 g/dL Normal 2-4 Albumin/Globulin Ratio 1.9 Normal 1-3 Total Bilirubin 0.60 mg/dL Normal 0.2-1.0 Alkaline Phosphatase 56 U/L Normal 34-104 Alt 15 U/L Normal 7-52 Ast 16 U/L Normal 13-39 Egfr Non- 84.0 >60 Egfr 101.7 >60 1 Laboratory 11/17/2018 [facility] TSH (Thyroid 3.32 Normal 0.34 -5.[address] Stim Horm) mcIU/[place] [address] [phone] Hemoglobin A1c (Glyco HGB) 5.8 % High 4.0-5.6 2 Laboratory test 11/14/2018 [facility] PSA Screening 2.650 ng/mL 0-4.[address] [place] [address] [phone] Lipid Profile 11/14/2018 [facility] Triglycerides 89 mg/dL 4 (Trig/Chol/HDL) [address] [place] [address] [phone] Cholesterol 163 mg/dL 5 HDL Cholesterol 57.3 mg/dL 6 LDL Cholesterol 88 mg/dL 7 Laboratory test 11/14/2018 [facility] Glucose 108 mg/dL High 70-100 8 finding [address] [place] [address] [phone] 1 Because ethnic data is not always readily available, this report includes an eGFR for both -Americans and non- Americans. The National Kidney Disease Education Program (NKDEP) does not endorse the use of the MDRD equation for patients that are not between the ages of 18 and 70, are , have extremes of body size, muscle mass, or nutritional status, or are non- or non-. According to the National Kidney Foundation, irrespective of diagnosis, the stage of the disease is based on the level of kidney function: Stage Description GFR(mL/min/1.73 m(2)) 1 Kidney damage with normal or decreased GFR 90 2 Kidney damage with mild decrease in GFR 60-89 3 Moderate decrease in GFR 30-59 4 Severe decrease in GFR 15-29 5 Kidney failure <15 (or dialysis) 2 Therapeutic target for the treatment of diabetes mellitus patients is <7% HBA1C, and in selective patients <6.0%. Please refer to [place] [employer] Association diabetic care guidelines for further information. 3 Serum levels of PSA measured using the Erum Smart [place] DXI Hybritech immunoassay should not be interpreted as absolute evidence of the presence or absence of disease. The PSA value should be used in conjunction with other pertinent clinical diagnostic procedures. The values obtained with different assay methods or kits cannot be used interchangeably. 4 Desirable: <150 Borderline High: 150-199 High: 200-499 Very High: >500 5 Desirable: <200 Borderline High: 200-239 High: >239 6 Low: <40 Desirable: 40-60 High: >60 7 Desirable: <100 Near Optimal: 100-129 Borderline High: 130-159 High: 160-189 Very High: >189 8 FASTING Procedures Date Code Description Status 11/02/2005 [id number] Colonoscopy Completed Medical Devices Description No Information Available Encounters Type Date Location Provider Dx Diagnosis Office Visit 03/01/2019 [facility] Pool Solares, G31.09 Other frontotemporal 10:45a [facility] dementia F80.1 Expressive language disorder Office Visit 01/09/2019 9:40a [facility] Beatriz Vásquez, I10 Essential ( primary) Medicine - [facility] CHAIREZ hypertension E03.9 Hypothyroidism, unspecified Office Visit 12/20/2018 11:20a [facility]iffanie Vásquez, I10 Essential ( primary) Medicine - Paddy CHAIREZ hypertension Assessments Date Code Description Provider 03/01/2019 G31.09 Other frontotemporal dementia Pool Solares M.D. 03/01/2019 F80.1 Expressive language disorder Pool Solares M.D. 01/09/2019 I10 Essential (primary) hypertension Beatriz Vásquez MD 01/09/2019 E03.9 Hypothyroidism, unspecified Beatriz Vásquez MD 12/20/2018 I10 Essential (primary) hypertension Beatriz Vásquez MD 11/17/2018 Z00.01 Encounter for general adult medical Beatriz Vásquez MD examination with abnorma 11/17/2018 F80.1 Expressive language disorder Beatriz Vásquez MD 11/17/2018 E03.9 Hypothyroidism, unspecified Beatriz Vásquez MD 11/17/2018 R73.01 Impaired fasting glucose Beatriz Vásquez MD 11/17/2018 H90.3 Sensorineural hearing loss, bilateral Beatriz Vásquez MD 11/17/2018 R03.0 Elevated blood-pressure reading, without Beatriz Vásquez MD diagnosis of hypert 11/17/2018 M79.606 Pain in leg, unspecified Beatriz Vásquez MD Plan of Treatment Future Appointment(s):06/01/2019 10:45 am - Pool Solares M.D. at [facility]05/15/2019 9:40 am - Beatriz Vásquez MD at [facility] - [facility]03/01/2019 - Pool Solares M.D.G31.09 Other frontotemporal dementiaNew Medication:Memantine HCL 10 mg - take 1 pill twice a dayFollow up: Follow up in 3 monthsRecommendations:Memantine (Namenda) 10mg: For the first month: Week 1: take 1/2 pill in am Week 2: take 1/2 pill twice a day Week 3: take 1 pill in am and 1/2 pill at night Week 4: start 1 pill twice a day.F80.1 Expressive language disorder Functional Status Description No Information Available Mental Status Description No Information Available Referrals Refer to Dr Reason for Referral Status Appt Date Mendez Reid MD Received Partial 01/05/2019 [address] [place] [address] [phone] [facility] Sent [address] [place] [address] [phone]
--- OUTSIDE RECORDS SUMMARY | 2019-04-17 01:13 | XMS REPORT | Continuity of Care Document ---
:1935 External Reference #:[id number] Author Name Shanna Ocampo M.D. (transmitted by agent of provider Catrachita Rogers) Address [address], [place] [address] Care Team Providers Name Role Phone Evi Caldwell MD - Surgery of the Care Team Information Promotion Officer [phone] [facility] Care Team Information Promotion Officer [place] - Physical Therapist Lauren Sheppard MD - Care Team Information Promotion Officer [phone] Dermatology Jose Willard MD - Ophthalmology Care Team Information Promotion Officer [phone] [facility] - Pain Care Team Information Promotion Officer [phone] Yumi Mendoza MD - Adult Care Team Information Promotion Officer [phone] Reconstructive Orthopaedic Surgery Beatriz Vásquez MD - Internal Medicine Care Team Information Promotion Officer Problems Active Problems Provider Date Displacement of [...] Smoked 2 Pipes Daily Smoking Status Reviewed: 04/02/19 Former Pipe Smoker, Smoked 2 Pipes Daily ETOH Use 05/16/2018 Occasionally consumes alcohol Recreational Drug Use Denies Drug Use Tobacco Use Start: Unknown End: Patient is a former Smoked pipe and Unknown smoker cigars 15 yrs ago Allergies, Adverse Reactions, Alerts Description No Known Drug Allergies Medications Active Medications SIG Qnty Indications Ordering Provider Date Valacyclovir HCL 1 tab every 8 hours 21tabs B02.9 Shanna Ocampo, 2018 X 7 days M.D. 1gm Tablets Memantine HCL take 1 pill twice a 60tabs G31.09 Pool Solares, 2018 10mg day M.D. Tablets Amlodipine Besylate 1 by mouth every 60tabs I10 Beatriz Vásquez MD 12/20/2018 day 10mg Tablets Levothyroxine 1 by mouth every 90tabs Beatriz Vásquez MD 11/24/2018 Sodium day 50mcg Tablets Shingrix 0.5 milliliters 2units Alan Morelos 11/08/2017 50mcg intramuscular now Freddy Pulliam,FACP Suspension Rec and 2-3 months later repeat Flomax 1 by mouth in the 90caps N40.0 Alan Morelos 04/09/2016 0.4mg evening Freddy Pulliam,FACP Capsules Atorvastatin take 1 tablet by 90tabs E78.2 Alan Morelos 06/30/2011 Calcium mouth at bedtime Mikaela Pulliam.,FACP 10mg Tablets Finasteride 1 tablet in evening N40.0 Jc Zuniga, 5mg MD Tablets Multi-Vitamin 11/17/18 reports 100tabs Z01.818 Unknown takes randomly 1 po Tablets qd (inconsistent) Glucosamine/Chondro 1 tablet daily M16.11 Unknown itin Sulfate 1000mg Tablets History Medications Amlodipine Besylate 1 by mouth every 30tabs Beatriz Vásquez MD 12/06/2018 - 5mg day 12/20/2018 Tablets Immunizations CPT Code Status Date Vaccine Reaction Lot # [id number] Given 04/03/2018 Influenza Virus Vaccine, [id number] Quadrivalent, Split, Preservative Free 73196 Given 03/04/2017 Influenza Virus Vaccine, [id number] Quadrivalent, Split, Preservative Free 38794 Given 06/02/2016 Tetanus And Diptheria (Td) [id number] For Adult Use Preservative Free 14032 Given 03/16/2016 Influenza Virus Vaccine, no reaction noted .... [id number] Quadrivalent, Split, hh Preservative Free 75915 Given 03/21/2015 Influenza Virus Vaccine, [id number] Quadrivalent, Split, Preservative Free 42050 Given 01/08/2015 Pneumococcal Conjugate [id number] Vaccine 13 Valent For Intramuscular Use 20648 Given 04/05/2013 Flu Vaccine Split Virus Preservative Free For Indiv 3Yr Older 36295 Given 04/05/2012 Fluzone High Dose 85986 Given 04/05/2011 Influenza Virus 3Yrs & Over 70493 Given 04/05/2010 Influenza Virus 3Yrs & Over 91790 Given 05/15/2008 Zoster (Zostavax) 1416x 23653 Given 09/01/2006 Tdap - Tetanus/Diptheria/Acellular Pertussis 95207 Given 08/06/2005 Pneumonia Vaccine Vital Signs Date Vital Result Comment 04/02/2019 8:51am Height 64.5 inches 5'4.50" Weight 162.00 lb Heart Rate 77 /min BP Systolic Sitting 123 mmHg BP Diastolic Sitting 70 mmHg O2 % BldC Oximetry 96 % BMI (Body Mass Index) 27.4 kg/m2 03/01/2019 10:46am Height 64.5 inches 5'4.50" Weight 155.00 lb Heart Rate 68 /min BP Systolic 138 mmHg BP Diastolic 70 mmHg BMI (Body Mass Index) 26.2 kg/m2 Results Test Date Facility Test Result H/L Range Note Comp Metabolic 12/20/2018 [facility] Sodium 138 mmol/L Normal 135-145 [address] [place] [address] [phone] Potassium 4.0 mmol/L Normal 3.5-5.0 Chloride 102 [...] >60 Egfr 101.7 >60 1 Laboratory 11/17/2018 [facility] TSH (Thyroid 3.32 Normal 0.34 -5.60 test finding Stim Horm) mcIU/[place] [address] [phone] Hemoglobin A1c (Glyco HGB) 5.8 % High 4.0-5.6 2 Laboratory test 11/14/2018 [facility] PSA Screening 2.650 ng/mL 0-4.0 3 [place] [address] [phone] Lipid Profile 11/14/2018 [facility] Triglycerides 89 mg/dL 4 (Trig/Chol/HDL) [place] [address] [phone] Cholesterol 163 mg/dL 5 HDL Cholesterol 57.3 mg/dL 6 LDL Cholesterol 88 mg/dL 7 Laboratory test 11/14/2018 [facility] Glucose 108 mg/dL High 70-100 [address] [place] [id number] [phone] 1 Because ethnic data is not always [...] in selective patients <6.0%. Please refer to [place] [employer] diabetic care guidelines for further information. 3 Serum levels of PSA measured using the Erum [place] DXI Hybritech immunoassay should not be interpreted [...] FASTING Procedures Date Code Description Status 11/02/2005 [id number] Colonoscopy Completed Medical Devices Description No Information Available Encounters Type Date Location Provider Dx Diagnosis Office Visit 03/01/2019 [facility] Pool Solares, G31.09 Other frontotemporal 10:45a [facility] dementia F80.1 Expressive language disorder Office Visit 01/09/2019 9:40a [facility] Beatriz Fahad, I10 Essential ( primary) Medicine - Paddy CHAIREZ hypertension E03.9 Hypothyroidism, unspecified Office Visit 12/20/2018 11:20a [facility] Megan Blackwell Essential ( primary) Medicine - Paddy CHAIREZ hypertension Assessments Date Code Description Provider 04/02/2019 B02.9 Zoster without complications Shanna Ocampo M.D. 03/01/2019 G31.09 Other frontotemporal dementia Pool Solares [...] 10:45 am - Pool Solares M.D. at [facility]05/15/2019 9:40 am - Beatriz Vásquez MD at [facility] Internal Medicine - [facility]04/02/2019 - Shanna Ocampo M.D.B02.9 Zoster without complicationsNew Medication:Valacyclovir HCL 1 gm - 1 tab every 8 hours X 7 days Functional Status Description No Information Available Mental Status Description No Information Available Referrals Refer to Dr Reason for Referral Status Appt Date Mendez Reid MD Received Partial 01/05/2019 2 [place] [address] [phone] [facility] Audiology Sent [address] [place] [address] [phone]
--- OUTSIDE RECORDS SUMMARY | 2019-04-17 01:13 | XMS REPORT | Continuity of Care Document ---
:1935 External Reference #:[id number] Author Name Beatriz Vásquez MD (transmitted by agent of provider Emily Larose) Address [address], [place] [address] Care Team Providers Name Role Phone Evi Caldwell MD - Surgery of the Care Team Information Production Inspector [facility] Care Team Information Production Inspector [phone] [place] - Physical Therapist Lauren Sheppard MD - Care Team Information Production Inspector [phone] Dermatology Jose Willard MD - Ophthalmology Care Team Information Production Inspector [facility] - Pain Care Team Information Production Inspector [phone] Yumi Mendoza MD - Adult Care Team Information Production Inspector [phone] Reconstructive Orthopaedic Surgery Beatriz Vásquez MD - Internal Medicine Care Team Information Production Inspector [phone] Problems Active Problems Provider Date Displacement of [...] Smoked 2 Pipes Daily Smoking Status Reviewed: 04/10/19 Former Pipe Smoker, Smoked 2 Pipes Daily [...] tablet in evening N40.0 Jc Zuniga, 5mg Tablets Multi-Vitamin 11/17/18 reports 100tabs Z01.818 Unknown takes randomly 1 po Tablets qd (inconsistent) Glucosamine/Chondro 1 tablet daily M16.11 Unknown itin Sulfate 1000mg Tablets History Medications Valacyclovir HCL 1 tab every 8 21tabs B02.9 Shanna Ocampo, 04/02/2019 - 1gm hours X 7 days M.D. 04/09/2019 Tablets Amlodipine Besylate 1 by mouth 30tabs Beatriz Vásquez MD 12/06/2018 - 5mg every day 12/20/2018 Tablets Immunizations CPT Code Status Date Vaccine Reaction Lot # [id number] Given 04/03/2018 Influenza Virus Vaccine, [id number] Quadrivalent, Split, Preservative Free 36374 Given 03/04/2017 Influenza Virus Vaccine, [id number] Quadrivalent, Split, Preservative Free 92559 Given 06/02/2016 Tetanus And Diptheria (Td) [id number] For Adult Use Preservative Free 60804 Given 03/16/2016 Influenza Virus Vaccine, no reaction noted .... [id number] Quadrivalent, Split, hh Preservative Free 02644 Given 03/21/2015 Influenza Virus Vaccine, x7yr2 Quadrivalent, Split, Preservative Free 83211 Given 01/08/2015 Pneumococcal Conjugate [id number] Vaccine 13 Valent For Intramuscular Use 90025 Given 04/05/2013 Flu Vaccine Split Virus Preservative Free For Indiv 3Yr Older 17568 Given 04/05/2012 Fluzone High Dose 23528 Given 04/05/2011 Influenza Virus 3Yrs & Over 89018 Given 04/05/2010 Influenza Virus 3Yrs & Over 68979 Given 05/15/2008 Zoster (Zostavax) 1416x 96289 Given 09/01/2006 Tdap - Tetanus/Diptheria/Acellular Pertussis 27144 Given 08/06/2005 Pneumonia Vaccine Vital Signs Date Vital Result Comment 04/10/2019 8:17am Height 64.5 inches 5'4.50" Weight 160.50 lb Heart Rate 76 /min BP Systolic 135 mmHg BP Diastolic 70 mmHg Body Temperature 97.9 F O2 % BldC Oximetry 98 % BMI (Body Mass Index) 27.1 kg/m2 04/02/2019 8:51am Height 64.5 inches 5'4.50" Weight 162.00 lb Heart Rate 77 /min BP Systolic Sitting 123 mmHg BP Diastolic Sitting 70 mmHg O2 % BldC Oximetry 96 % BMI (Body Mass Index) 27.4 kg/m2 Results Test Date Facility Test Result H/L Range Note Comp Metabolic 12/20/2018 [facility] Sodium 138 mmol/L Normal 135-145 [place] [address] [phone] Potassium 4.0 mmol/L Normal 3.5-5.0 Chloride 102 [...] >60 Egfr 101.7 >60 1 Laboratory 11/17/2018 [facility] TSH (Thyroid 3.32 Normal 0.34 -5.60 test finding Stim Horm) mcIU/[place] [address] [phone] Hemoglobin A1c (Glyco HGB) 5.8 % High 4.0-5.6 2 Laboratory test 11/14/2018 [facility] PSA Screening 2.650 ng/mL 0-4.0 3 [place] [address] [phone] Lipid Profile 11/14/2018 [facility] Triglycerides 89 mg/dL 4 (Trig/Chol/HDL) [place] [address] [phone] Cholesterol 163 mg/dL 5 HDL Cholesterol 57.3 mg/dL 6 LDL Cholesterol 88 mg/dL 7 Laboratory test 11/14/2018 [facility] Glucose 108 mg/dL High 70-100 [address] [place] [address] [phone] 1 Because ethnic data is not always [...] in selective patients <6.0%. Please refer to [place] [employer] diabetic care guidelines for further information. 3 Serum levels of PSA measured using the [employer] [place] DXI Hybritech immunoassay should not be interpreted [...] FASTING Procedures Date Code Description Status 11/02/2005 [id number] Colonoscopy Completed Medical Devices Description No Information Available Encounters Type Date Location Provider Dx Diagnosis Office Visit 04/02/2019 [facility] Shanna Ocampo, B02.9 Zoster without 8:50a Medicine - [facility]ian[facility] Madi.DLeobardo complications Office Visit 03/01/2019 [facility] Christopher Beck, G31.09 Other frontotemporal 10:45a [facility] MLeobardoDLeobardo dementia F80.1 Expressive language disorder Office Visit 01/09/2019 9:40a [facility] Internal Megan Blackwell Essential ( primary) Medicine - Paddy CHAIREZ hypertension E03.9 Hypothyroidism, unspecified Office Visit 12/20/2018 11:20a [facility] Beatriz Vásquez, I10 Essential ( primary) Medicine - Paddy CHAIREZ hypertension Assessments Date Code Description Provider 04/10/2019 B02.9 Zoster without complications Beatriz Vásquez MD 04/10/2019 I10 Essential (primary) hypertension Beatriz Vásquez MD 04/02/2019 B02.9 Zoster without complications Shanna Ocampo [...] of Treatment Future Appointment(s):06/01/2019 10:45 am - oPol Solares M.D. at [facility]05/15/2019 9:40 am - Beatriz V[facility]quez MD at [facility] - Beatriz Vásquez MDB02.9 Zoster without complicationsComments:Healing well. No pain. Continue to dnuysdmP82 Essential ( primary) hypertensionComments:Your blood pressure is fine. Continue the same medication Functional Status Description No Information Available Mental Status Description No Information Available Referrals Refer to Reason for Referral Status Appt Date Mendez Reid MD Received Partial 01/05/2019 2 [place] [address] [phone] [facility] Audiology Sent [address] [place] [address] [phone]
--- NOTE | 2019-04-17 01:17 | ED ---
Neurological HPI - HPI Summary HPI Summary: Patient is a 83 y/o M presenting to [facility] via EMS with AMS, left arm weakness, and left facial droop. Provider in room upon patient's arrival. Lennie linder called at 0104, patient wheeled to CT immediately and Brain CT done at 0110. Provider evaluated patient at 0117, NIH of 12 noted. is present in the room to give history. Last known well is reported to be 2200 04/16/19, patient is not on blood thinners. reports that she had been in bed and was waiting for the patient, who was watching a football game, to come to bed. She states that she had fallen asleep for some time and when she awoke at around 0030 04/17, she noted that the patient was still not in bed. The went downstairs and found the patient on his back on the floor of the landing of a flight of four steps. notes that there was a hole in a nearby wall with blood. She states that the patient is altered and has some aphasia at baseline, but claims the facial droop and weakness is new. Home medications and allergies are reviewed. Level 5 caveat due to AMS. - History of Current Complaint Stated Complaint: AMS PER EMS Time Seen by Provider: 04/17/19 01:02 Hx Obtained From: Family/Patient Service Associate - Hx From Patient Unobtainable Due To: Altered Mental Status Onset/Duration: Still Present Timing: Constant Neurological Deficit Location: Facial, LUE Character: Motor Weakness, Other: - AMS Associated Signs and Symptoms: Positive: Weakness, AMS - Additional Pertinent History Primary Care Physician: [id number] - Allergy/Home Medications Allergies/Adverse Reactions: Allergies Allergy/AdvReac Type Severity Reaction Status Date / Time No Known Allergies Allergy Verified 04/17/19 01:35 Home Medications: Home Medications Amlodipine Besylate 10 mg PO DAILY 04/17/19 [History Confirmed 04/17/19] Memantine HCl 10 mg PO BID 04/17/19 [History Confirmed 04/17/19] PMH/Surg Hx/FS Hx/Imm Hx Endocrine/Hematology History: Reports: Hx Thyroid Disease Denies: Hx Diabetes Cardiovascular History: Reports: Hx Hypercholesterolemia Denies: Hx Hypertension, Hx Pacemaker/ICD, Other Cardiovascular Problems/ Disorders Respiratory History: Denies: Hx Asthma, Hx Chronic Obstructive Pulmonary Disease (COPD), Other Respiratory Problems/Disorders GI History: Denies: Hx Ulcer History: Reports: Hx Benign Prostatic Hyperplasia, Other Problems/ Disorders - prostate Denies: Hx Renal Disease Musculoskeletal History: Reports: Hx Arthritis - LOW BACK, HANDS, Hx Back Problems - Low back pain with left leg pain Sensory History: Reports: Hx Cataracts - RIGHT CATARACT, Hx Contacts or Glasses - GLASSES, Hx Hearing Aid Denies: Other Sensory Impairments Opthamlomology History: Reports: Hx Cataracts - RIGHT CATARACT, Hx Contacts or Glasses - GLASSES Denies: Other Sensory Impairments Neurological History: Denies: Other Neuro Impairments/Disorders Psychiatric History: Denies: Hx Panic Disorder - Surgical History Surgery Procedure, Year, and Place: RIGHT CATARACT, 2008, [facility] 2007 [facility] , 1991. Lt CATARACT -2013. HEMORRHOID. hip replacement-RIGHT 06/2016 Hx Anesthesia Reactions: No Infectious Disease History: Denies: Hx Clostridium Difficile, Hx Hepatitis, Hx Human Immunodeficiency Virus (HIV), Hx of Known/Suspected MRSA, Hx Shingles, Hx Tuberculosis - Family History Known Family History: Negative: Respiratory Disease - Social History Alcohol Use: Occasionally Substance Use Type: Reports: None Smoking Status (MU): Never Smoked Tobacco Have You Smoked in the Last Year: No Review of Systems - ROS Summary Review of Systems Summary: Level 5 caveat due to AMS. Neurological: Other - AMS, left facial droop Positive: Weakness - LUE All Other Systems Reviewed And Are Negative: No - Comments Additional Review of Systems Comments: Level 5 caveat due to AMS. Physical Exam - Summary Physical Exam Summary: General: Well-developed, Well-nourished male. No acute distress. HEENT: Normocephalic, Occipital superficial abrasion, no active bleeding Eyes: Conjuctiva normal, PERRL. Ears: TMs within normal limits. Nares: (-) discharge, (-) erythema. Oropharynx: Clear, mucous membranes moist, (-) exudates. Neck: Soft, FROM, (-) lymphadenopathy, (-) thyromegaly, (-) JVD. Cardiovascular: Normal sinus rhythm, (-) murmur. Lungs: Clear to auscultation bilaterally (-) wheezes, (-) rales, (-) rhonchi. Abdomen: Soft, non-tender, non-distended, (-) organomegaly, normal bowel sounds. Back: (-) CVA tenderness Extremities: No edema. Skin: Warm, dry, (-) rash. Neuro: GCS 13, NIH of 9, see scale for breakdown Triage Information Reviewed: Yes Vital Signs On Initial Exam: Initial Vitals Temp Pulse Resp BP Pulse Ox 99 F 79 18 150/76 96 04/17/19 01:04 04/17/19 01:04 04/17/19 01:04 04/17/19 01:04 04/17/19 01:04 Vital Signs Reviewed: Yes - Fauzia Coma Scale Best Eye Response: 4 - Spontaneous Best Motor Response: 5 - Purposeful Movement Best Verbal Response: 4 - Confused Coma Scale Total: 13 Procedures - Sedation Patient Received Moderate/Deep Sedation with Procedure: No Diagnostics - Laboratory Result Diagrams: 04/17/19 01:27 04/17/19 01:27 Lab Statement: Any lab studies that have been ordered have been reviewed, and results considered in the medical decision making process. - CT BRAIN CT CT Interpretation Completed By: Radiologist Summary of CT Findings: IMPRESSION: Blood located in the suprasellar cistern and pentagonal cistern extending into. the interhemispheric fissure and along the left tentorium. The blood has. ruptured into the lateral ventricles in which there is developing hydrocephalus. with moderately severe distention of the lateral ventricles which appears more. prominent than on the previous MR study of 01/03/2013. The pattern of bleeding. raises the possibility of a ruptured aneurysm possibly an anterior. communicating artery aneurysm or anterior cerebral artery aneurysm. This has. bled both into the subarachnoid space as well as into the lateral ventricles. The patient has a history of having fallen down a flight of stairs. I do not. see a significant hemorrhagic parenchymal contusion. Although the blood in. interhemispheric fissure has a pattern suggestive of a subdural hematoma. layering on the right side of the falx extending on the superior aspect of the. right tentorial leaf. THIS REPORT WAS REVIEWED BY DR. GARCIA. - EKG 0118 Cardiac Rate: NL - rate of 79 BPM EKG Rhythm: Sinus Rhythm Summary of EKG Findings: EKG showed NSR with rate of 79 BPM, no STEMI. This EKG was reviewed and interpreted by Dr. Garcia. NIH Scale - NIH Scale Level of Consciousness: Alert/Keenly Responsive Ask Patient the Month and His/Her Age: Neither Correct/Aphasic Ask Pt to Open/Close Eyes and Calender Runner/Release Non-Paretic Hand: Both Correctly Best Gaze (Only Horizontal Eye Movement): Normal Visual Field Testing: No Visual Loss Facial Paresis-Pt to Smile & Close Eyes or Grimace Symmetry: Partial Paralysis Motor Function - Right Arm: No Drift-Holds 10 Seconds Motor Function - Left Arm: Effort Against [place] Motor Function - Right Leg: No Effort Against [place] Motor Function - Left Leg: No Effort Against [place] Limb Ataxia-Must be out of Proportion to Weakness Present: Absent Sensory (Use Pinprick to Test Arms/Legs/Trunk/Face): Normal Best Language (Describe Picture, Name Items): No Aphasia Dysarthria (Read Several Words): Normal Extinction and Inattention: No Abnormality Total Score: 12 Course/Dx - Course Course Of Treatment: 84-year-old male found by after fall. Upon arousal patient was unable to stand and ambulate. Head new left facial droop. Ambulance was called. Couldn't gravely called upon patient's arrival. He does have known dementia. However is normally alert and oriented. Upon arrival he is confused. GCS of 13. CAT scan demonstrates intracranial hemorrhage. Patient is accepted in transfer to [facility] by neurosurgery. Transferred by ambulance. - Diagnoses Provider Diagnoses: Intracranial bleed During the Visit The Following Alert/Code Occurred: Code Levin - Code linder was called at 0104, patient was wheeled to CT before evaluation, Brain CT done at 0110, provider evaluated patient at 0117, Dr. Suarez, radiologist, called with Brain CT reading at 0122 noting hemorrhage. As no neurosurgery is available at [facility], patient will be transferred. 0153 - Patient's case was discussed with Dr. Stoney Francisco, neurosurgery, at [facility] in [place]. Dr. Francisco accepts the patient for transfer, patient will be transferred via ambulance to [facility] ICU. - Physician Notifications Discussed Care Of Patient With: Stoney Francisco Time Discussed With Above Provider: 01:53 Instructed by Provider To: Other - Dr. Suarez, radiologist, called with Brain CT reading at 0122 noting hemorrhage. As no neurosurgery is available at [facility], patient will be transferred. 0153 - Patient's case was discussed with Dr. Stoney Francisco, neurosurgery, at [facility] in [place]. Dr. Francisco accepts the patient for transfer, patient will be transferred via ambulance to [facility] ICU. - Critical Care Time Critical Care Time: 75-104 min - 80 minutes CCT Discharge ED - Sign-Out/Discharge Documenting (check all that apply): Patient Departure - transfer - Discharge Plan Condition: Guarded Disposition: TRANS HIGHER LVL OF CARE FAC Referrals: Beatriz Vásquez MD [Primary Care Provider] - - Billing Disposition and Condition Condition: GUARDED Disposition: Trans Higher Lvl of Care Fac - Attestation Statements Document Initiated by Scribe: Yes Documenting Scribe: HELEN CUELLO Provider For Whom Rosieibe is Documenting (Include Credential): ANA ROSA GARCIA MD Scribe Attestation: IHELEN, scribed for ANA ROSA GARCIA MD on 04/17/19 at 0218. Scribe Documentation Reviewed: Yes Provider Attestation: The documentation as recorded by the scribeHELEN accurately reflects the service I personally performed and the decisions made by me, ANA ROSA GARCIA MD Status of Scribe Document: Viewed
[2019-04-17 01:34] LABS: ABS Basophils 0.1 10^3/ul (0-0.2); ABS Eosinophils 0.2 10^3/ul (0-0.6); ABS Lymphocytes 1.6 10^3/ul (1.0-4.8); ABS Neutrophils 7.8 10^3/ul (1.5-7.7); Eosinophil % 1.7 %; Hematocrit 42 % (42-52); Lymphocyte % 15.2 %; Mean Corpuscular HGB Conc 33 g/dL (31-36); Mean Corpuscular Hemoglobin 31 pg (27-31); Mean Corpuscular Volume 94 fL (80-94); Mean Platelet Volume 6.8 fL (7.4-10.4); Nucleated Red Blood Cells % 0.1; Platelet Count 230 10^3/uL (150-450); Red Blood Count 4.44 10^6 /uL (4.18-5.48); Red Cell Distribution Width 14 % (10-15); White Blood Count 10.7 10^3/uL (3.5-10.8)
[2019-04-17 01:42] LABS: Activated Partial Thrombo Time 30.7 seconds (26.0-38.0); INR 0.98 (0.82-1.09)
[2019-04-17 01:56] LABS: Albumin 4.1 g/dL (3.2-5.2); Albumin/Globulin Ratio 1.4 (1-3); BUN/Creatinine Ratio 17.3 (8-20); Calcium 8.9 mg/dL (8.6-10.3); EGFR African American 88.6 (>60); EGFR Non-African American 73.2 (>60); Globulin 2.9 g/dL (2-4); HDL Cholesterol 54.7 mg/dL; Potassium 3.8 mmol/L (3.5-5.0); Total Bilirubin 0.5 mg/dL (0.2-1.0)
[2019-04-17 01:57] LABS: Troponin I 0.02 ng/mL (<0.04)
[2019-04-17 02:39] VITALS: BP 144/69
== END 2019-04-17 02:45 | disposition short-term general hospital (02) ==
LOC: ED 01:01
DX: I61.9 Nontraumatic intracerebral hemorrhage, unspecified (principal); E78.00 Pure hypercholesterolemia, unspecified; N40.0 Benign prostatic hyperplasia without lower urinary tract symptoms; Z96.641 Presence of right artificial hip joint; G30.9 Alzheimer's disease, unspecified; F02.80 Dementia in other diseases classified elsewhere, unspecified severity, without behavioral disturbance, psychotic disturbance, mood disturbance, and anxiety; Z79.899 Other long term (current) drug therapy
CPT/HCPCS: 36415; 70450; 71045; 80053; 80061; 83605; 84484; 85025; 85610; 85730; 93005; 99285

== ENCOUNTER 2019-06-04 22:56 | Inpatient (IN) | payer MEDICARE, OTHER ==
[2019-06-04] MEDS ORDERED: NS 0.9% 1000 ML** 2,000 ML IV ONE (23:09)
[2019-06-04] MEDS ORDERED: NS 0.9% 1000 ML** 1,000 ML IV.FLUID IV ONE (23:10)
--- NOTE | 2019-06-04 23:22 | ED ---
HPI Febrile Illness - HPI Summary HPI Summary: Pt is an 83 y/o M presenting to the ED brought in by EMS from [facility] where he is a resident. LEVEL 5 CAVEAT: Pts full hx and physical is limited d/t baseline non-verbal status. Per staff, pt has had a fever and shallow breathing tonight. Lying the pt down, his SaO2 is in the 80s. - History of Current Complaint Chief Complaint: EDFever Time Seen by Provider: 06/04/19 23:06 Hx Obtained From: EMS, Other: - staff @ [facility] Hx From Patient Unobtainable Due To: Altered Mental Status - non-verbal Onset/Duration: Started Hours Ago, Still Present Timing: Constant, Lasting Hours Initial Severity: Moderate Current Severity: Moderate Pain Intensity: 0 Aggravating Factors: Nothing Alleviating Factors: Nothing Associated Signs and Symptoms: SOB - Additional Pertinent History Primary Care Physician: [id number] - Allergy/Home Medications Allergies/Adverse Reactions: Allergies Allergy/AdvReac Type Severity Reaction Status Date / Time No Known Allergies Allergy Verified 04/17/19 01:35 PMH/Surg Hx/FS Hx/Imm Hx Previously Healthy: Yes Endocrine/Hematology History: Reports: Hx Thyroid Disease Denies: Hx Diabetes Cardiovascular History: Reports: Hx Hypercholesterolemia Denies: Hx Hypertension, Hx Pacemaker/ICD, Other Cardiovascular Problems/ Disorders Respiratory History: Denies: Hx Asthma, Hx Chronic Obstructive Pulmonary Disease (COPD), Other Respiratory Problems/Disorders GI History: Denies: Hx Ulcer History: Reports: Hx Benign Prostatic Hyperplasia, Other Problems/ Disorders - prostate Denies: Hx Renal Disease Musculoskeletal History: Reports: Hx Arthritis - LOW BACK, HANDS, Hx Back Problems - Low back pain with left leg pain Sensory History: Reports: Hx Cataracts - RIGHT CATARACT, Hx Contacts or Glasses - GLASSES, Hx Hearing Aid Denies: Other Sensory Impairments Opthamlomology History: Reports: Hx Cataracts - RIGHT CATARACT, Hx Contacts or Glasses - GLASSES Denies: Other Sensory Impairments Neurological History: Denies: Other Neuro Impairments/Disorders Psychiatric History: Denies: Hx Panic Disorder - Surgical History Surgery Procedure, Year, and Place: RIGHT CATARACT, 2008, [facility] 2007 [facility] , 1991. Lt CATARACT -2013. HEMORRHOID. hip replacement-RIGHT 06/2016 Hx Anesthesia Reactions: No Infectious Disease History: Unable to Obtain/Confirm Infectious Disease History: Denies: Hx Clostridium Difficile, Hx Hepatitis, Hx Human Immunodeficiency Virus (HIV), Hx of Known/Suspected MRSA, Hx Shingles, Hx Tuberculosis, Traveled Outside the [place] in Last 30 Days - Family History Known Family History: Positive: None Negative: Respiratory Disease - Social History Alcohol Use: Occasionally Hx Substance Use: No Substance Use Type: Reports: None Hx Tobacco Use: No Smoking Status (MU): Never Smoked Tobacco Have You Smoked in the Last Year: No Review of Systems - ROS Summary Review of Systems Summary: LEVEL 5 CAVEAT: Pts full hx and physical is limited d/t baseline non-verbal status. Positive: Fever Positive: Shortness Of Breath All Other Systems Reviewed And Are Negative: No Physical Exam - Summary Physical Exam Summary: LEVEL 5 CAVEAT: Pts full hx and physical is limited d/t baseline non-verbal status. Appearance: Well-appearing elderly man lying on the stretcher in no acute distress. Mildly tachypnic. Noted to be febrile. Skin: Pts skin feels febrile. Eyes: sclera anicteric, no conjunctival pallor ENT: mucous membranes moist Neck: deferred Respiratory: Mild tachypnea. No signs of respiratory distress Cardiovascular: Appears well perfused, pulses are nml Abdomen: G-tube in place. Insertion site appears nml. Musculoskeletal: Moving all 4 extremities without obvious discomfort Neurological: Awake and alert, non-verbal. Psychiatric: Deferred Triage Information Reviewed: Yes Vital Signs On Initial Exam: Initial Vitals Temp Pulse Resp BP Pulse Ox 100.5 F 109 32 142/65 93 06/04/19 23:08 06/04/19 23:08 06/04/19 23:08 06/04/19 23:08 06/04/19 23:08 Vital Signs Reviewed: Yes Procedures - Sedation Patient Received Moderate/Deep Sedation with Procedure: No Diagnostics - Vital Signs Vital Signs Temp Pulse Resp BP Pulse Ox 06/04/19 23:08 100.5 F 109 32 142/65 93 - Laboratory Result Diagrams: 06/04/19 23:36 06/04/19 23:36 Lab Statement: Any lab studies that have been ordered have been reviewed, and results considered in the medical decision making process. - Radiology CXR Radiology Interpretation Completed By: ED Physician Summary of Radiographic Findings: No acute process. Pending official radiology report. Course/Dx - Course Course Of Treatment: Pt is an 83 y/o M presenting to the ED brought in by EMS from [facility] where he is a resident. LEVEL 5 CAVEAT: Pts full hx and physical is limited d/t baseline non-verbal status. Per staff, pt has had a fever and shallow breathing tonight. Lying the pt down, his SaO2 is in the 80s. On exam, pt is a well-appearing elderly man lying on the stretcher in no acute distress. He's mildly tachypnic. Noted to be febrile. Additionally, G- tube in place on abd. Insertion site appears nml. CXR shows no acute process, pending official radiology report. I spoke with Dr. Shin about the pt's present condition at 0437. [place] [facility] [place] Dx includes UTI and sepsis. - Diagnoses Provider Diagnoses: UTI (urinary tract infection), Sepsis Discharge ED - Sign-Out/Discharge Documenting (check all that apply): Patient Departure - Discharge Plan Condition: Stable Disposition: ADMITTED TO [facility] - Billing Disposition and Condition Condition: STABLE Disposition: Admitted to [facility] - Attestation Statements Document Initiated by Scribe: Yes Documenting Scribe: Spring Higgins Provider For Whom [facility] is Documenting (Include Credential): Antoine Steele MD. Scribe Attestation: I, Spring Higgins, nomaned for Antoine Steele MD. on 06/05/19 at 0638. Scribe Documentation Reviewed: Yes Provider Attestation: The documentation as recorded by the scribe, Spring Higgins accurately reflects the service I personally performed and the decisions made by me, Antoine Steele MD. Status of Scribe Document: Viewed
[2019-06-04 23:57] LABS: Hematocrit 34 % (42-52); Hemoglobin 11.1 g/dL (14.0-18.0); Mean Corpuscular HGB Conc 33 g/dL (31-36); Mean Corpuscular Hemoglobin 31 pg (27-31); Mean Corpuscular Volume 93 fL (80-94); Mean Platelet Volume 6.5 fL (7.4-10.4); Platelet Count 465 10^3/uL (150-450); Red Blood Count 3.62 10^6 /uL (4.18-5.48); Red Cell Distribution Width 15 % (10-15); White Blood Count 29.3 10^3/uL (3.5-10.8)
[2019-06-05 00:13] LABS: ALT 114 U/L (7-52); AST 60 U/L (13-39); Albumin 2.7 g/dL (3.2-5.2); Albumin/Globulin Ratio 0.9 (1-3); Alkaline Phosphatase 127 U/L (34-104); Anion Gap 7 mmol/L (2-11); BUN/Creatinine Ratio 40.9 (8-20); Blood Urea Nitrogen 27 mg/dL (6-24); CO2 Carbon Dioxide 34 mmol/L (22-32); Calcium 8.6 mg/dL (8.6-10.3); Chloride 94 mmol/L (101-111); EGFR African American 139.8 (>60); EGFR Non-African American 115.6 (>60); Glucose 167 mg/dL (70-100); Potassium 4.2 mmol/L (3.5-5.0); Sodium 135 mmol/L (135-145); Total Protein 5.7 g/dL (6.4-8.9)
[2019-06-05 00:18] LABS: Troponin I 0.04 ng/mL (<0.03)
[2019-06-05 00:19] LABS: ABS Monocytes 1.5 10^3/ul (0-0.8); ABS Neutrophils 25.7 10^3/ul (1.5-7.7); Eosinophil % 0.1 %; Lymphocyte % 6.9 %
[2019-06-05 00:23] LABS: Activated Partial Thrombo Time 31.7 seconds (26.0-38.0); INR 1.56 (0.82-1.09)
[2019-06-05] MEDS ORDERED: cefTRIAXone(*) 1 GM in NS 0.9% 50 ML* 50 ML IVPB ONE (01:45)
[2019-06-05 02:25] LABS: Urine Appearance Cloudy; Urine Bilirubin Negative (Negative); Urine Blood 2+ (Negative); Urine Color Yellow; Urine Glucose Negative (Negative); Urine Ketones Negative (Negative); Urine Nitrite Negative (Negative); Urine Protein 1+(30 mg/dL) (Negative); Urine Specific Gravity 1.018 (1.010-1.030); Urine Urobilinogen Negative (Negative)
[2019-06-05 02:29] LABS: Urine Bacteria 2+ (Absent); Urine Red Blood Cell 3+(>10/hpf) (Absent); Urine Squamous Epithelial Cell Present (Absent); Urine White Blood Cell 3+(>20/hpf) (Absent)
[2019-06-05] MEDS ORDERED: NS 0.9% 1000 ML** 1,000 ML IV SCH (05:00)
--- NOTE | 2019-06-05 08:11 | HP ---
History of Present Illness - History of Present Illness Reason for Visit: fever History of Present Illness: 83 yo male, nonverbal at baseline, with dementia brought in from skilled nursing with fever. In the ED, his vitals have been stable. CXR showed no acute disease. UA is positive. Pt has no obvious rash, does not appear uncomfortable from anything else. He has a G-tube in place, insertion site does not look infected. He has a chronic canada. - Past Medical History Cardiac: HTN, Hyperlipidemia LEGAL DIRECTOR: Dementia Endocrine: Hypothyroidism - Past Surgical History Past Surgical History: Cataract Removal, Hernia Repair, Total Hip Replacement - Past Family History Family History: CAD, CVA, DM - Past Social History Smoke: No Alcohol: None Drugs: None Lives: Longterm Review of Systems - Measurements Intake and Output: Intake and Output Last 24 Hours 06/03/19 06/04/19 06/05/19 06/06/19 06:59 06:59 06:59 06:59 Intake Total 3000 Balance 3000 Weight 200 lb 6.403 oz Intake: IV Fluids 3000 - Review of Systems General Comments: pt nonverbal Objective Active Medications: Amlodipine Besylate (Norvasc Tab*) 10 mg PO DAILY [facility] Atorvastatin Calcium (Lipitor*) 10 mg PO 2100 [facility] Sodium Chloride (Ns 0.9% 1000 Ml) 1,000 mls @ 125 mls/hr IV Q8H [facility] Last Admin: 06/05/19 05:45 Dose: 125 mls/hr Ceftriaxone Sodium 1 gm/ (Sodium Chloride) 50 mls @ 100 mls/hr IVPB Q24H [facility] Memantine (Namenda Tab*) 10 mg PO BID [facility] Additional Medications: no apparent distress Vital Signs - 8 hr 06/05/19 06/05/19 06/05/19 00:09 00:39 01:00 Temperature Pulse Rate 100 99 107 Respiratory 31 27 32 Rate Blood Pressure 121/54 117/55 (mmHg) O2 Sat by Pulse 96 96 96 Oximetry 06/05/19 06/05/19 06/05/19 01:09 01:39 02:00 Temperature Pulse Rate 104 100 105 Respiratory 29 29 32 Rate Blood Pressure 128/60 123/55 (mmHg) O2 Sat by Pulse 95 96 95 Oximetry 06/05/19 06/05/19 06/05/19 02:09 02:39 03:00 Temperature Pulse Rate 105 103 108 Respiratory 36 31 33 Rate Blood Pressure 132/62 122/55 (mmHg) O2 Sat by Pulse 94 95 93 Oximetry 06/05/19 06/05/19 06/05/19 03:09 03:39 04:00 Temperature Pulse Rate 111 114 114 Respiratory 18 31 27 Rate Blood Pressure 142/63 134/65 (mmHg) O2 Sat by Pulse 89 91 92 Oximetry 06/05/19 06/05/19 06/05/19 04:09 04:39 05:00 Temperature Pulse Rate 106 106 105 Respiratory 32 35 32 Rate Blood Pressure 122/57 119/52 (mmHg) O2 Sat by Pulse 86 86 91 Oximetry 06/05/19 06/05/19 06/05/19 05:09 05:39 05:47 Temperature 99.8 F Pulse Rate 102 102 Respiratory 34 36 Rate Blood Pressure 114/56 124/53 (mmHg) O2 Sat by Pulse 83 86 Oximetry 06/05/19 06/05/19 06:00 06:09 Temperature Pulse Rate 99 98 Respiratory 31 31 Rate Blood Pressure 115/55 (mmHg) O2 Sat by Pulse 94 94 Oximetry Appearance: NID Eyes: No Scleral Icterus, PERRLA Ears/Nose/Mouth/Throat: Mucous Membranes Moist Neck: Trachea Midline Respiratory: Symmetrical Chest Expansion and Respiratory Effort, Clear to Auscultation, Clear to Percussion, Clear to Palpation Cardiovascular: NL Sounds; No Murmurs; No JVD, No Edema Abdominal: NL Sounds; No Tenderness; No Distention, - - G-tube Extremities: No Edema Skin: No Rash or Ulcers Neurological: - - alert Result Diagrams: 06/04/19 23:36 06/04/19 23:36 Assess/Plan/Problems-Billing Assessment: - Patient Problems (1) UTI (urinary tract infection) Current Visit: Yes Status: Acute Comment: fever, leukocytosis chronic canada, UA is pos urine culture, blood culture ceftriaxone (2) HTN (hypertension) Current Visit: Yes Status: Acute Code(s): I10 - ESSENTIAL (PRIMARY) HYPERTENSION SNOMED Code(s): 62691508 (3) HLD (hyperlipidemia) Current Visit: Yes Status: Acute Code(s): E78.5 - HYPERLIPIDEMIA, UNSPECIFIED SNOMED Code(s): 01147769 (4) Dementia Current Visit: Yes Status: Acute Code(s): F03.90 - UNSPECIFIED DEMENTIA WITHOUT BEHAVIORAL DISTURBANCE SNOMED Code(s): 32838893 (5) DVT prophylaxis Current Visit: Yes Status: Acute Code(s): Z29.9 - ENCOUNTER FOR PROPHYLACTIC MEASURES, UNSPECIFIED SNOMED Code(s): 593916650 (6) DNR (do not resuscitate) Current Visit: Yes Status: Acute
[2019-06-05] MEDS: NS 0.9% 1000 ML** 1,000 ML IV SCH (10:47)
[2019-06-05] MEDS: Memantine TAB* 10 MG PO SCH ×2 (10:49→23:13)
[2019-06-05] MEDS: amLODIPine TAB* 5 MG PO SCH (10:49)
--- NOTE | 2019-06-05 12:19 | PN ---
Subjective Date of Service: 06/05/19 Interval History: Mr. Ricardo is sleeping in bed on my exam. He is nonverbal and unable to offer any information. is at bedside. She reports he has been very lethargic the last few days which is not his norm. He had a stroke in September and has been nonverbal since then but was previously living a very active lifestyle. She is not sure why he has a Beauchamp, but would like it to be removed if possible. Nursing reports large pressure ulcer. Family History: Unchanged from Admission Social History: Unchanged from Admission Past Medical History: Unchanged from Admission Objective Active Medications: Amlodipine Besylate (Norvasc Tab*) 10 mg PO DAILY [facility] Atorvastatin Calcium (Lipitor*) 10 mg PO 2100 [facility] Ceftriaxone Sodium 1 gm/ (Sodium Chloride) 50 mls @ 100 mls/hr IVPB Q24H [facility] Sodium Chloride (Ns 0.9% 1000 Ml) 1,000 mls @ 125 mls/hr IV PER RATE [facility] Memantine (Namenda Tab*) 10 mg PO BID [facility] Vital Signs - 8 hr 06/05/19 06/05/19 06/05/19 04:39 05:00 05:09 Temperature Pulse Rate 106 105 102 Respiratory 35 32 34 Rate Blood Pressure 119/52 114/56 (mmHg) O2 Sat by Pulse 86 91 83 Oximetry 06/05/19 06/05/19 06/05/19 05:39 05:47 06:00 Temperature 99.8 F Pulse Rate 102 99 Respiratory 36 31 Rate Blood Pressure 124/53 (mmHg) O2 Sat by Pulse 86 94 Oximetry 06/05/19 06/05/19 06/05/19 06:09 07:00 07:09 Temperature Pulse Rate 98 94 96 Respiratory 31 31 31 Rate Blood Pressure 115/55 111/52 (mmHg) O2 Sat by Pulse 94 95 90 Oximetry 06/05/19 06/05/19 06/05/19 07:39 08:00 08:10 Temperature Pulse Rate 105 90 94 Respiratory 37 31 32 Rate Blood Pressure 133/62 113/48 (mmHg) O2 Sat by Pulse 88 92 92 Oximetry 06/05/19 06/05/19 06/05/19 08:39 09:13 09:19 Temperature 99.8 F 98.3 F Pulse Rate 104 103 110 Respiratory 31 31 16 Rate Blood Pressure 124/55 124/55 115/57 (mmHg) O2 Sat by Pulse 91 93 97 Oximetry 06/05/19 11:00 Temperature 98.3 F Pulse Rate 99 Respiratory 24 Rate Blood Pressure 110/51 (mmHg) O2 Sat by Pulse 99 Oximetry Oxygen Devices in Use Now: Nasal Cannula - 4L Appearance: Elderly male lying in bed in NAD Ears/Nose/Mouth/Throat: Mucous Membranes Moist Neck: NL Appearance and Movements; NL JVP, Trachea Midline Respiratory: Symmetrical Chest Expansion and Respiratory Effort Cardiovascular: NL Sounds; No Murmurs; No JVD Extremities: No Edema Neurological: - - Nonverbal Lines/Tubes/Other Access: Clean, Dry and Intact Peripheral IV Result Diagrams: 06/04/19 23:36 06/04/19 23:36 Assess/Plan/Problems-Billing Assessment: Mr. 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 - Patient Problems (1) UTI (urinary tract infection) Comment: - Catheter-related, present on admission - Unclear why he has a chronic Beauchamp (retention vs wound healing?) - Urine culture pending - Will plan on changing Beauchamp in 1-2 days - Continue ceftriaxone (2) Sepsis Comment: - Met criteria on admission with leukocytosis, tachycardia, tachypnea - Source is UTI - Plan as above (3) Septic encephalopathy Code(s): G93.41 - METABOLIC ENCEPHALOPATHY Comment: - Secondary to UTI - Plan as above (4) History of CVA (cerebrovascular accident) Code(s): Z86.73 - PRSNL HX OF TIA (TIA), AND CEREB INFRC W/O RESID DEFICITS Comment: - September 2018 with significant deficits - NPO with PEG tube feedings per home schedule (5) HTN (hypertension) Code(s): I10 - ESSENTIAL (PRIMARY) HYPERTENSION Comment: - Normotensive - Continue amlodipine (6) HLD (hyperlipidemia) Code(s): E78.5 - HYPERLIPIDEMIA, UNSPECIFIED Comment: - Continue atorvastatin (7) Dementia Code(s): F03.90 - UNSPECIFIED DEMENTIA WITHOUT BEHAVIORAL DISTURBANCE Comment : - Continue Namenda (8) Hypothyroidism Code(s): E03.9 - HYPOTHYROIDISM, UNSPECIFIED Comment: - Continue levothyroxine (9) DVT prophylaxis Code(s): Z29.9 - ENCOUNTER FOR PROPHYLACTIC MEASURES, UNSPECIFIED Comment: - Coco (10) DNR (do not resuscitate) Comment: Status and Disposition: Inpatient. Anticipate d/c back to [facility] when medically stable, likely 2 more days. Attending: Frances Stubbs
[2019-06-05] MEDS ORDERED: Enoxaparin(*) 40 MG/0.4 ML SYR SUBCUT SCH (13:00)
[2019-06-05] MEDS: Acetaminophen ADULT LIQ* 650 MG/20.3 ML UDC PO PRN (16:04)
[2019-06-05] MEDS: Finasteride TAB* 5 MG PEG TUBE SCH (17:54)
[2019-06-05] MEDS: Atorvastatin* 10 MG TAB PO SCH (23:13)
[2019-06-05] MEDS: Terazosin CAP* 1 MG PEG TUBE SCH (23:13)
[2019-06-06] MEDS: NS 0.9% 1000 ML** 1,000 ML IV SCH ×3 (03:59→20:37)
[2019-06-06 04:42] LABS: ABS Eosinophils 0.1 10^3/ul (0-0.6); ABS Lymphocytes 1.5 10^3/ul (1.0-4.8); ABS Monocytes 0.6 10^3/ul (0-0.8); ABS Neutrophils 19.7 10^3/ul (1.5-7.7); Eosinophil % 0.4 %; Hematocrit 27 % (42-52); Hemoglobin 9.2 g/dL (14.0-18.0); Lymphocyte % 6.7 %; Mean Corpuscular HGB Conc 33 g/dL (31-36); Mean Corpuscular Hemoglobin 31 pg (27-31); Mean Corpuscular Volume 93 fL (80-94); Mean Platelet Volume 6.6 fL (7.4-10.4); Platelet Count 339 10^3/uL (150-450); Red Blood Count 2.95 10^6 /uL (4.18-5.48); Red Cell Distribution Width 15 % (10-15); White Blood Count 21.8 10^3/uL (3.5-10.8)
[2019-06-06 04:59] LABS: BUN/Creatinine Ratio 52.4 (8-20); Calcium 7.6 mg/dL (8.6-10.3); EGFR African American 235.6 (>60); EGFR Non-African American 194.7 (>60); Potassium 3.4 mmol/L (3.5-5.0)
[2019-06-06] MEDS: Levothyroxine TAB* 50 MCG TAB PO SCH (06:20)
[2019-06-06] MEDS: Acetaminophen ADULT LIQ* 650 MG/20.3 ML UDC PO PRN ×2 (06:27→16:22)
[2019-06-06] MEDS: Memantine TAB* 10 MG PO SCH ×2 (09:57→20:25)
[2019-06-06] MEDS: amLODIPine TAB* 5 MG PO SCH (09:58)
[2019-06-06] MEDS ORDERED: KCL 10 MEQ/50 ML IVPREMIX* 10 MEQ/50 ML BAG IV ONE (10:15)
--- NOTE | 2019-06-06 10:24 | PN ---
Subjective Date of Service: 06/06/19 Interval History: Mr. Ricardo is sleeping on my exam. He will briefly open his eyes to voice, but is nonverbal and unable to communicate. Family not at bedside. Nursing reports fever last night, now resolved. Family History: Unchanged from Admission Social History: Unchanged from Admission Past Medical History: Unchanged from Admission Objective Active Medications: Acetaminophen (Tylenol Adult Liq*) 650 mg PO Q4H PRN TEMPERATURE > 100.4 Amlodipine Besylate (Norvasc Tab*) 10 mg PO DAILY [facility] Atorvastatin Calcium (Lipitor*) 10 mg PO 2100 [facility] Finasteride (Proscar Tab*) 5 mg PEG TUBE QPM [facility] Ceftriaxone Sodium 1 gm/ (Sodium Chloride) 50 mls @ 100 mls/hr IVPB Q24H [facility] Sodium Chloride (Ns 0.9% 1000 Ml) 1,000 mls @ 125 mls/hr IV PER RATE [facility] Potassium Chloride (Potassium Chloride 10 Meq/50 Ml Ivpremix*) 10 meq in 50 mls @ 50 mls/hr IV ONCE ONE Levothyroxine Sodium (Synthroid Tab*) 50 mcg PO 0600 [facility] Memantine (Namenda Tab*) 10 mg PO BID [facility] Terazosin HCl (Hytrin Cap*) 1 mg PEG TUBE BEDTIME [facility] Vital Signs - 8 hr 06/06/19 06/06/19 06/06/19 04:08 06:22 07:17 Temperature 100.1 F 101.5 F 101.0 F Pulse Rate 88 93 Respiratory 19 18 Rate Blood Pressure 126/54 106/50 (mmHg) O2 Sat by Pulse 90 93 Oximetry 06/06/19 07:40 Temperature 99.5 F Pulse Rate Respiratory Rate Blood Pressure (mmHg) O2 Sat by Pulse Oximetry Oxygen Devices in Use Now: Nasal Cannula - 2.5L Appearance: Elderly male lying in bed in NAD Ears/Nose/Mouth/Throat: Mucous Membranes Moist Neck: NL Appearance and Movements; NL JVP, Trachea Midline Respiratory: Symmetrical Chest Expansion and Respiratory Effort, - - Rhonchi throughout Cardiovascular: NL Sounds; No Murmurs; No JVD, RRR Abdominal: NL Sounds; No Tenderness; No Distention Extremities: No Edema Neurological: - - Nonverbal Lines/Tubes/Other Access: Clean, Dry and Intact Beauch[place], Clean, Dry and Intact Peripheral IV Result Diagrams: 06/06/19 04:22 06/06/19 04:21 Assess/Plan/Problems-Billing Assessment: Mr. 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 (retention vs wound healing?) - Urine culture pending - Change Beauchamp tomorrow - Continue ceftriaxone (3) Sepsis Comment: - Met criteria on admission with leukocytosis, tachycardia, tachypnea - Source is UTI/bacteremia - Plan as above (4) Septic encephalopathy Code(s): G93.41 - METABOLIC ENCEPHALOPATHY Comment: - Secondary to UTI/bacteremia - Plan as above (5) History of CVA (cerebrovascular accident) Code(s): Z86.73 - PRSNL HX OF TIA (TIA), AND CEREB INFRC W/O RESID DEFICITS Comment: - Hemorrhagic - September 2018 with significant deficits - NPO with PEG tube feedings per home schedule (6) HTN (hypertension) Code(s): I10 - ESSENTIAL (PRIMARY) HYPERTENSION Comment: - Normotensive - Continue amlodipine (7) HLD (hyperlipidemia) Code(s): E78.5 - HYPERLIPIDEMIA, UNSPECIFIED Comment: - Continue atorvastatin (8) Dementia Code(s): F03.90 - UNSPECIFIED DEMENTIA WITHOUT BEHAVIORAL DISTURBANCE Comment : - Continue Namenda (9) Hypothyroidism Code(s): E03.9 - HYPOTHYROIDISM, UNSPECIFIED Comment: - Continue levothyroxine (10) DVT prophylaxis Code(s): Z29.9 - ENCOUNTER FOR PROPHYLACTIC MEASURES, UNSPECIFIED Comment: - SCDs (11) DNR (do not resuscitate) Comment: Status and Disposition: Inpatient. Anticipate d/c back to [facility] when medically stable, timeframe TBD by clinical course. Attending: Frances Stubbs
[2019-06-06] MEDS: Collagenase 250 UNITS/GM OINT* 1 APPLIC OINT TOPICAL SCH (14:22)
[2019-06-06] MEDS: Finasteride TAB* 5 MG PEG TUBE SCH (16:22)
[2019-06-06] MEDS: Atorvastatin* 10 MG TAB PO SCH (20:24)
[2019-06-06] MEDS: Terazosin CAP* 1 MG PEG TUBE SCH (20:25)
[2019-06-06] MEDS ORDERED: cefTRIAXone(*) 1 GM in NS 0.9% 50 ML* 50 ML IVPB SCH (21:00)
[2019-06-07] MEDS: Acetaminophen ADULT LIQ* 650 MG/20.3 ML UDC PO PRN ×2 (00:12→23:34)
[2019-06-07] MEDS ORDERED: Ibuprofen ADULT LIQ* 600 MG/30 ML UDC PO ONE (01:40)
[2019-06-07 02:17] LABS: Hematocrit 26 % (42-52); Hemoglobin 8.6 g/dL (14.0-18.0); Mean Corpuscular HGB Conc 33 g/dL (31-36); Mean Corpuscular Hemoglobin 31 pg (27-31); Mean Corpuscular Volume 93 fL (80-94); Mean Platelet Volume 6.6 fL (7.4-10.4); Platelet Count 345 10^3/uL (150-450); Red Blood Count 2.78 10^6 /uL (4.18-5.48); Red Cell Distribution Width 15 % (10-15); White Blood Count 26.6 10^3/uL (3.5-10.8)
[2019-06-07 02:33] LABS: BUN/Creatinine Ratio 46.2 (8-20); Calcium 7.3 mg/dL (8.6-10.3); EGFR African American 256.6 (>60); EGFR Non-African American 212.1 (>60); Potassium 3.3 mmol/L (3.5-5.0)
[2019-06-07 02:56] LABS: ABS Lymphocytes 0.7 10^3/ul (1.0-4.8); ABS Monocytes 0.9 10^3/ul (0-0.8); Eosinophil % 0.1 %; Lymphocyte % 2.6 %
[2019-06-07] MEDS: Levothyroxine TAB* 50 MCG TAB PO SCH (06:22)
[2019-06-07 06:41] LABS: Hematocrit 25 % (42-52); Hemoglobin 8.4 g/dL (14.0-18.0); Mean Corpuscular HGB Conc 33 g/dL (31-36); Mean Corpuscular Hemoglobin 31 pg (27-31); Mean Corpuscular Volume 94 fL (80-94); Mean Platelet Volume 7.1 fL (7.4-10.4); Platelet Count 308 10^3/uL (150-450); Red Blood Count 2.69 10^6 /uL (4.18-5.48); Red Cell Distribution Width 15 % (10-15); White Blood Count 22.6 10^3/uL (3.5-10.8)
[2019-06-07 06:50] LABS: ABS Lymphocytes 0.9 10^3/ul (1.0-4.8); ABS Monocytes 0.9 10^3/ul (0-0.8); ABS Neutrophils 20.8 10^3/ul (1.5-7.7); Eosinophil % 0.2 %
[2019-06-07 06:55] LABS: Potassium 3.1 mmol/L (3.5-5.0)
[2019-06-07] MEDS ORDERED: Vancomycin per Pharmacy* NOTE FOLLOW UP SCH (08:00)
[2019-06-07 08:01] LABS: Calcium 7.7 mg/dL (8.6-10.3)
[2019-06-07 08:07] LABS: BUN/Creatinine Ratio 46.2 (8-20); EGFR African American 256.6 (>60); EGFR Non-African American 212.1 (>60)
[2019-06-07] MEDS ORDERED: Vancomycin(*) 1,000 MG in NS 0.9% 250 ML* 250 ML IVPB ONE (08:30)
[2019-06-07 08:51] LABS: Albumin 2.1 g/dL (3.2-5.2); Albumin/Globulin Ratio 0.8 (1-3); Globulin 2.5 g/dL (2-4); Total Bilirubin 0.4 mg/dL (0.2-1.0); Total Protein 4.6 g/dL (6.4-8.9)
[2019-06-07] MEDS: Aztreonam (*) 1 GM in NS 0.9% 50 ML* 50 ML IVPB SCH ×2 (09:16→16:02)
[2019-06-07] MEDS: Collagenase 250 UNITS/GM OINT* 1 APPLIC OINT TOPICAL SCH (09:16)
[2019-06-07] MEDS: Memantine TAB* 10 MG PO SCH ×2 (09:16→20:38)
--- NOTE | 2019-06-07 09:42 | PN ---
Subjective Date of Service: 06/07/19 Interval History: Mr. Ricardo is nonverbal and unable to offer any subjective information. He does wake to voice. Does not follow commands. No obvious signs of pain. Nursing reports tachypnea overnight, still present this morning but improved. Family History: Unchanged from Admission Social History: Unchanged from Admission Past Medical History: Unchanged from Admission Objective Active Medications: Acetaminophen (Tylenol Adult Liq*) 650 mg PO Q4H PRN TEMPERATURE > 100.4 Collagenase (Santyl 250 Units/Gm Oint*) 1 applic TOPICAL DAILY [facility] Finasteride (Proscar Tab*) 5 mg PEG TUBE QPM [facility] Aztreonam 1 gm/ Sodium (Chloride) 50 mls @ 200 mls/hr IVPB Q8H [facility] Vancomycin HCl 1,000 mg/ (Sodium Chloride) 250 mls @ 166.667 mls/hr IVPB ONCE ONE; Protocol Potassium Chloride (Potassium Chloride 20 Meq/100 Ml Ivpremix*) 20 meq in 100 mls @ 50 mls/hr IV Q2H [facility] Levothyroxine Sodium (Synthroid Tab*) 50 mcg PO 0600 [facility] Memantine (Namenda Tab*) 10 mg PO BID [facility] Terazosin HCl (Hytrin Cap*) 1 mg PEG TUBE BEDTIME [facility] Vital Signs - 8 hr 06/07/19 06/07/19 06/07/19 01:47 01:51 01:55 Temperature 99.7 F 100.3 F 100.3 F Pulse Rate 107 112 106 Respiratory 36 38 40 Rate Blood Pressure 113/50 115/50 108/42 (mmHg) O2 Sat by Pulse 97 97 98 Oximetry 06/07/19 06/07/19 06/07/19 02:00 02:05 02:23 Temperature 100.3 F 100.1 F 100.3 F Pulse Rate 102 102 110 Respiratory 42 42 38 Rate Blood Pressure 106/45 105/39 110/46 (mmHg) O2 Sat by Pulse 96 97 96 Oximetry 06/07/19 06/07/19 06/07/19 02:31 02:55 02:59 Temperature 100.1 F 100.6 F 99.6 F Pulse Rate 98 92 Respiratory 35 36 Rate Blood Pressure 105/38 91/44 104/44 (mmHg) O2 Sat by Pulse 98 95 Oximetry 06/07/19 03:40 Temperature 99 F Pulse Rate 83 Respiratory 34 Rate Blood Pressure 94/51 (mmHg) O2 Sat by Pulse 97 Oximetry Oxygen Devices in Use Now: Nasal Cannula - 3L Appearance: Elderly male lying in bed in NAD Neck: NL Appearance and Movements; NL JVP, Trachea Midline Respiratory: Symmetrical Chest Expansion and Respiratory Effort, - - Rhonchi throughout, L>R Cardiovascular: NL Sounds; No Murmurs; No JVD, RRR Abdominal: NL Sounds; No Tenderness; No Distention Extremities: No Edema Neurological: - - Wakes to voice Lines/Tubes/Other Access: Clean, Dry and Intact Peripheral IV Result Diagrams: 06/07/19 05:56 06/07/19 05:56 Assess/Plan/Problems-Billing Assessment: Mr. 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 - Patient Problems (1) Bacteremia Code(s): R78.81 - BACTEREMIA Comment: - 2/4 BC bottles + Staph epi (likely contaminant) and 1/4 bottles + Proteus (? 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 coli - Beauchamp changed today - Continue aztreonam (4) Sepsis Comment: - Met criteria on admission with leukocytosis, tachycardia, tachypnea - Source is UTI/bacteremia/wound infection - Plan as above (5) Septic encephalopathy Code(s): G93.41 - METABOLIC ENCEPHALOPATHY Comment: - Secondary to UTI/bacteremia/wound infection - Plan as above (6) History of CVA (cerebrovascular accident) Code(s): Z86.73 - PRSNL HX OF TIA (TIA), AND CEREB INFRC W/O RESID DEFICITS Comment: - Hemorrhagic - March 2019 with significant deficits - NPO with PEG tube feedings per home schedule (7) HTN (hypertension) Code(s): I10 - ESSENTIAL (PRIMARY) HYPERTENSION Comment: - Normotensive, borderline soft pressures - Continue amlodipine (8) HLD (hyperlipidemia) Code(s): E78.5 - HYPERLIPIDEMIA, UNSPECIFIED Comment: - Hold atorvastatin d/t transaminitis (9) Dementia Code(s): F03.90 - UNSPECIFIED DEMENTIA WITHOUT BEHAVIORAL DISTURBANCE Comment : - Continue Namenda (10) Hypothyroidism Code(s): E03.9 - HYPOTHYROIDISM, UNSPECIFIED Comment: - Continue levothyroxine (11) DVT prophylaxis Code(s): Z29.9 - ENCOUNTER FOR PROPHYLACTIC MEASURES, UNSPECIFIED Comment: - SCDs (12) DNR (do not resuscitate) Comment: Status and Disposition: Inpatient. Anticipate d/c back to [facility] when medically stable, timeframe TBD by clinical course. Family is very realistic about prognosis and does not want to pursue any invasive measures. They are planning on meeting with patient's neurologist next week, but may opt for hospice depending on information from that meeting. Attending: Frances Stubbs
--- NOTE | 2019-06-07 10:39 | CONS ---
CONSULTATION REPORT: DATE OF CONSULT: 06/07/19 REQUESTING PHYSICIAN: Jolie Mayers NP CONSULTING SERVICE: Infectious Disease. REASON FOR CONSULTATION: Bacteremia. IMPRESSION: 1. Proteus mirabilis in 1 of 2 blood culture bottles, Staph epidermidis in 2 of 4 bottles. 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 Sacral decubitus ulcer, which is PCR positive for MRSA, the sample was taken after couple days of IV antibiotics, the culture is pending. Proteus probably is coming from his decubitus ulcer, could be an intra-abdominal source, his abdominal exam is benign and his LFTs are normal, so I think that is less likely. Staph epidermidis is contaminant. E. coli is probably colonization of the Beauchamp catheter. MRSA could be colonization or infection of decubitus ulcer as well. We will await that culture. 2. Recent intracranial hemorrhage with aphasia. 3. PEG tube. 4. History of a hip arthroplasty, benign hip exam today. RECOMMENDATION: I agree with vancomycin and aztreonam while we are waiting for cultures from the decubitus ulcer. Should have some wound care and rotational therapy to offload the wound. His long-term prognosis is not good at this point given the chronic Beauchamp and the decubitus ulcer and his immobility. HISTORY OF PRESENT ILLNESS: An 83-year-old male with history of intracranial hemorrhage recently with immobility and aphasia admitted with fever. He cannot provide any of the history which is obtained instead from our discussion with Jolie Mayers NP and review of the medical record. He has had fever off and on here. On admission, he had a white count of 29,000. He was started on ceftriaxone. His ALT was 114; today, it is 140. His troponin is 0.04. He has an ultrasound of his gallbladder and liver pending. Initial blood cultures 1 bottle proteus, 2 bottles Staph epidermidis, E. coli in the urine culture, Beauchamp has been changed. He does have a decubitus ulcer which was swabbed yesterday; the PCR shows MRSA. The Gram stain showed gram-positive cocci, gram- negative bacilli, gram-negative coccobacilli, gram-positive bacilli. On ceftriaxone, his white count is down to 22,000. His mental status is about the same, which is close to its baseline per his family. PAST MEDICAL HISTORY: 1. Status post hip arthroplasty. 2. Intracranial hemorrhage. 3. Cataract extraction. 4. Hernia repair. 5. Hypothyroidism. 6. Dementia. 7. Status post PEG tube placement. ALLERGIES: No known drug allergies. MEDICATIONS: 1. Tylenol 2. Lipitor. 3. Aztreonam 1 g every 8 hours. 4. Finasteride. 5. Levothyroxine. 6. Namenda. 7. Terazosin. 8. Vancomycin 1 g, one-time dose. SOCIAL HISTORY: He lives in a usp. He is a nonsmoker. FAMILY HISTORY: Per the records, coronary artery disease and stroke. REVIEW OF SYSTEMS: Unobtainable. PHYSICAL EXAM: Vital Signs: Temperature is 37, heart rate 80, respiratory rate 20, blood pressure 100/50, oxygen saturation 97% on 3 L. General: He is awake, not in distress. Neurologic: As I mentioned, he is awake, does not regard, does not follow commands. HEENT: There is no conjunctival hemorrhage. Oropharynx without lesions. Neck is supple without mass. Heart is regular rate and rhythm without murmurs, rubs, or gallops. Lungs: Rhonchi at the bases without wheeze or rale. Abdomen: Soft, nontender, nondistended. There is a PEG tube without surrounding erythema. Skin: There is no rash or splinter hemorrhage. Musculoskeletal: There is no spine tenderness to palpation. There is no log roll sign with either hip. There is a sacral decubitus ulceration over the coccyx of about 2 cm, surrounding slight erythema. DIAGNOSTIC STUDIES/LAB DATA: White blood cell count 22, hemoglobin 8, platelets 308, creatinine is 0.3, ALT 140. Please see impressions recommendations outlined above, which I have discussed with Jolie Mayers NP. Thank you for asking me to see Mr. Ricardo in consultation. [id number]/[facility] #: [id number] ROSCOE
[2019-06-07] MEDS: KCL 20 MEQ/100 ML IVPREMIX* 20 MEQ/100 ML BAG IV SCH ×2 (11:20→13:34)
[2019-06-07] MEDS: Finasteride TAB* 5 MG PEG TUBE SCH (17:54)
[2019-06-07] MEDS: Vancomycin(*) 750 MG in NS 0.9% 250 ML* 250 ML IVPB SCH (17:54)
[2019-06-07] MEDS: Terazosin CAP* 1 MG PEG TUBE SCH (20:38)
[2019-06-08] MEDS: Aztreonam (*) 1 GM in NS 0.9% 50 ML* 50 ML IVPB SCH ×3 (00:02→16:12)
[2019-06-08] MEDS: Vancomycin(*) 750 MG in NS 0.9% 250 ML* 250 ML IVPB SCH ×2 (01:50→12:11)
[2019-06-08 05:21] LABS: Hematocrit 28 % (42-52); Hemoglobin 9.5 g/dL (14.0-18.0); Mean Corpuscular HGB Conc 34 g/dL (31-36); Mean Corpuscular Hemoglobin 31 pg (27-31); Mean Corpuscular Volume 93 fL (80-94); Mean Platelet Volume 6.7 fL (7.4-10.4); Platelet Count 386 10^3/uL (150-450); Red Blood Count 3.03 10^6 /uL (4.18-5.48); Red Cell Distribution Width 15 % (10-15); White Blood Count 26.9 10^3/uL (3.5-10.8)
[2019-06-08 05:23] LABS: ABS Eosinophils 0.1 10^3/ul (0-0.6); ABS Lymphocytes 0.9 10^3/ul (1.0-4.8); ABS Monocytes 0.8 10^3/ul (0-0.8); Eosinophil % 0.5 %; Lymphocyte % 3.5 %
[2019-06-08] MEDS: Levothyroxine TAB* 50 MCG TAB PO SCH (05:36)
[2019-06-08 05:37] LABS: BUN/Creatinine Ratio 45.5 (8-20); Calcium 8.2 mg/dL (8.6-10.3); EGFR African American 223.2 (>60); EGFR Non-African American 184.5 (>60); Magnesium 1.8 mg/dL (1.9-2.7); Potassium 3.5 mmol/L (3.5-5.0)
[2019-06-08] MEDS ORDERED: Magnesium Oxide TAB* 400 MG PO ONE (07:58)
[2019-06-08] MEDS: Memantine TAB* 10 MG PO SCH ×2 (08:08→20:11)
[2019-06-08] MEDS: Collagenase 250 UNITS/GM OINT* 1 APPLIC OINT TOPICAL SCH (08:14)
[2019-06-08] MEDS ORDERED: Vancomycin Trough Check NOTE FOLLOW UP ONE (10:00)
[2019-06-08] MEDS: Vancomycin(*) 1,000 MG in NS 0.9% 250 ML* 250 ML IV SCH ×2 (11:49→20:32)
--- NOTE | 2019-06-08 13:24 | PN ---
Subjective Date of Service: 06/08/19 Interval History: Patient nonverbal and not able to provide history. reports patient was grimacing earlier but has been resting comfortable. Family History: Unchanged from Admission Social History: Unchanged from Admission Past Medical History: Unchanged from Admission Objective Active Medications: Acetaminophen (Tylenol Adult Liq*) 650 mg PO Q4H PRN PRN Reason: TEMPERATURE > 100.4 Last Admin: 06/07/19 23:34 Dose: 650 mg Collagenase (Santyl 250 Units/Gm Oint*) 1 applic TOPICAL DAILY [facility] Last Admin: 06/08/19 08:14 Dose: 1 applic Finasteride (Proscar Tab*) 5 mg PEG TUBE QPM [facility] Last Admin: 06/07/19 17:54 Dose: 5 mg Aztreonam 1 gm/ Sodium (Chloride) 50 mls @ 200 mls/hr IVPB Q8H [facility] Last Admin: 06/08/19 08:07 Dose: 200 mls/hr Vancomycin HCl 1,000 mg/ (Sodium Chloride) 250 mls @ 166.667 mls/hr IV Q8H [facility] Last Admin: 06/08/19 11:49 Dose: 166.667 mls/hr Levothyroxine Sodium (Synthroid Tab*) 50 mcg PO 0600 [facility] Last Admin: 06/08/19 05:36 Dose: 50 mcg Memantine (Namenda Tab*) 10 mg PO BID [facility] Last Admin: 06/08/19 08:08 Dose: 10 mg Pharmacy Consult (Vancomycin Per Pharmacy*) 1 note FOLLOW UP .VANC PER PHARMACY [facility]; Protocol Pharmacy Profile Note (Vancomycin Trough Check) 1 note FOLLOW UP ONCE ONE Stop: 06/10/19 06:31 Terazosin HCl (Hytrin Cap*) 1 mg PEG TUBE BEDTIME [facility] Last Admin: 06/07/19 20:38 Dose: 1 mg Additional Medications: no apparent distress Vital Signs - 8 hr 06/08/19 08:19 Temperature 98.5 F Pulse Rate 107 Respiratory 23 Rate Blood Pressure 138/55 (mmHg) O2 Sat by Pulse 98 Oximetry Oxygen Devices in Use Now: Nasal Cannula Appearance: thin, elderly white male, laying in bed, appearing in NAD Eyes: No Scleral Icterus, - - PERRL Ears/Nose/Mouth/Throat: Mucous Membranes Moist Neck: NL Appearance and Movements; NL JVP Respiratory: Symmetrical Chest Expansion and Respiratory Effort, - - lung sounds consistent with upper airway secretions Cardiovascular: NL Sounds; No Murmurs; No JVD, RRR Abdominal: - - abd soft, nontender, nondistended Extremities: No Edema, No Clubbing, Cyanosis Skin: - - approx 4 cm x 1 cm wound on right buttock, with brown-tinged drainage as well as minimal bleeding; surrounding erythema approx 6 cm up to back and down buttock Neurological: - - alert, unable to assess orientation as patient nonverbal Result Diagrams: 06/08/19 04:59 06/08/19 04:59 Microbiology and Other Data: Microbiology 06/06/19 11:22 Aerobic Blood Culture - Preliminary Blood Venous No Growth Day 2 Anaerobic Blood Culture - Preliminary No Growth Day 2 06/06/19 11:13 Aerobic Blood Culture - Preliminary Blood Venous No Growth Day 2 Anaerobic Blood Culture - Preliminary No Growth Day 2 06/04/19 23:36 Aerobic Blood Culture - Preliminary Blood Venous No Growth Day 3 Anaerobic Blood Culture - Final Proteus Mirabilis 06/05/19 02:10 Urine Culture - Final Urine Escherichia Coli 06/06/19 14:31 Skin and Soft Tissue MRSA/MSSA (PCR - Final Wound - Drainage Mrsa Positive S.aureus Positive Gram Stain - Final 06/05/19 00:00 Aerobic Blood Culture - Final Blood Venous Staphylococcus Epidermidis Anaerobic Blood Culture - Final Staphylococcus Epidermidis Blood MRSA/MSSA (PCR) - Final Mrsa Negative S.aureus Negative 06/05/19 09:16 Nasal Screen MRSA (PCR) - Final Nasal Mrsa Not Detected Assess/Plan/Problems-Billing Assessment: Mr. 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 - Patient Problems (1) Sepsis Current Visit: Yes Status: Acute Comment: - Met criteria on admission with leukocytosis, tachycardia, tachypnea - Source is UTI/bacteremia/wound infection - Plan as above (2) Sacral decubitus ulcer Current Visit: Yes Status: Acute Code(s): L89.159 - PRESSURE ULCER OF SACRAL REGION, UNSPECIFIED STAGE SNOMED Code(s): 957371197 Comment: - With active infection - Wound culture growing MRSA and gram negative (likely Proteus which was present in BC) - Continue vanco, aztreonam (3) UTI (urinary tract infection) Current Visit: Yes Status: Acute Comment: - Catheter-related, present on admission - Unclear why he has a chronic Beauchamp (retention vs wound healing?). Requesting records from [facility] - Urine culture growing E. coli - Beauchamp changed 06/07/19 - Continue aztreonam (4) Bacteremia Current Visit: Yes Status: Acute Code(s): R78.81 - BACTEREMIA SNOMED Code( s): 0535614 Comment: - 2/4 BC bottles + Staph epi (likely contaminant) and 1/4 bottles + Proteus (? wound) - Repeat BC without growth to date - Appreciate ID consult - Continue vanco, aztreonam - Leukocytosis and fever are persistent despite several days of abx, will check CT abd/pelvis (5) History of intracranial hemorrhage Current Visit: Yes Status: Acute Code(s): Z86.79 - PERSONAL HISTORY OF OTHER DISEASES OF THE CIRCULATORY SYSTEM SNOMED Code(s): 48706201906128059 Comment: -ICH in March 2019 with significant residual deficits including aphasia and dysphagia with PEG; bed bound -NPO with tube feeds per home regimen (6) HLD (hyperlipidemia) Current Visit: Yes Status: Acute Code(s): E78.5 - HYPERLIPIDEMIA, UNSPECIFIED SNOMED Code(s): 07073154 Comment: - Hold atorvastatin d/t transaminitis (7) HTN (hypertension) Current Visit: Yes Status: Acute Code(s): I10 - ESSENTIAL (PRIMARY) HYPERTENSION SNOMED Code(s): 20325256 Comment: - Normotensive, borderline soft pressures - Continue amlodipine (8) Hypothyroidism Current Visit: Yes Status: Acute Code(s): E03.9 - HYPOTHYROIDISM, UNSPECIFIED SNOMED Code(s): 49813043 Comment: - Continue levothyroxine (9) Dementia Current Visit: Yes Status: Acute Code(s): F03.90 - UNSPECIFIED DEMENTIA WITHOUT BEHAVIORAL DISTURBANCE SNOMED Code(s): 33010063 Comment: - Continue Namenda - Supportive care (10) DNR (do not resuscitate) Current Visit: Yes Status: Acute Comment: (11) DVT prophylaxis Current Visit: Yes Status: Acute Code(s): Z29.9 - ENCOUNTER FOR PROPHYLACTIC MEASURES, UNSPECIFIED SNOMED Code(s): 431515022 Comment: - SCDs - Chemical ppx contraindicated in setting of recent ICH Status and Disposition: Inpatient. Anticipate d/c back to [facility] when medically stable, timeframe TBD by clinical course. Family is very realistic about prognosis and does not want to pursue any invasive measures. They are planning on meeting with patient's neurologist next week, but may opt for hospice depending on information from that meeting.
[2019-06-08] MEDS: Acetaminophen ADULT LIQ* 650 MG/20.3 ML UDC PO PRN (16:21)
[2019-06-08] MEDS ORDERED: Lactated Ringers 1000 ML Bag* 1,000 ML IV SCH (17:00)
[2019-06-08] MEDS ORDERED: Lactated Ringers 1000 ML Bag* 1,000 ML IV ONE (17:00)
[2019-06-08] MEDS ORDERED: NS 0.9% 1000 ML** 1,000 ML IV ONE (19:25)
[2019-06-08] MEDS: Finasteride TAB* 5 MG PEG TUBE SCH (20:11)
[2019-06-08] MEDS: Terazosin CAP* 1 MG PEG TUBE SCH (20:11)
[2019-06-08] MEDS ORDERED: Metoprolol Tartrate IV* 1 MG/ML 5 ML VIAL IV ONE (20:41)
[2019-06-08] MEDS ORDERED: Metoprolol Tartrate IV* 1 MG/ML 5 ML VIAL ONE (20:45)
[2019-06-09] MEDS: Aztreonam (*) 1 GM in NS 0.9% 50 ML* 50 ML IVPB SCH ×2 (00:17→07:57)
[2019-06-09] MEDS: Acetaminophen ADULT LIQ* 650 MG/20.3 ML UDC PO PRN (00:21)
[2019-06-09] MEDS: Collagenase 250 UNITS/GM OINT* 1 APPLIC OINT TOPICAL SCH ×2 (02:55→09:42)
[2019-06-09] MEDS: Vancomycin(*) 1,000 MG in NS 0.9% 250 ML* 250 ML IV SCH ×2 (03:00→18:21)
[2019-06-09] MEDS: Levothyroxine TAB* 50 MCG TAB PO SCH (04:56)
[2019-06-09] MEDS ORDERED: Magnesium Sulfate 2 GM IV* 2 GM/50 ML BAG IVPB ONE (08:22)
[2019-06-09] MEDS ORDERED: Lactated Ringers 1000 ML Bag* 1,000 ML IV ONE (09:00)
[2019-06-09] MEDS ORDERED: Cefepime 2 GM in Dextrose(*) 2 GM/50 ML BAG IV SCH (09:00)
[2019-06-09] MEDS ORDERED: metroNIDAZOLE IV 500 MG/100ML* 500 MG/100 ML BAG IVPB SCH (09:30)
[2019-06-09 09:34] LABS: Hematocrit 26 % (42-52); Hemoglobin 8.5 g/dL (14.0-18.0); Mean Corpuscular HGB Conc 33 g/dL (31-36); Mean Corpuscular Hemoglobin 31 pg (27-31); Mean Corpuscular Volume 94 fL (80-94); Platelet Count 370 10^3/uL (150-450); Red Blood Count 2.76 10^6 /uL (4.18-5.48); Red Cell Distribution Width 16 % (10-15); White Blood Count 21.7 10^3/uL (3.5-10.8)
[2019-06-09] MEDS ORDERED: Morphine INJ* 4 MG/ML 1 ML SYRINGE (NEW SYRINGE VERSION) IV PRN (10:20)
[2019-06-09 10:29] LABS: ABS Lymphocytes 0.7 10^3/ul (1.0-4.8); ABS Monocytes 0.6 10^3/ul (0-0.8); ABS Neutrophils 20.3 10^3/ul (1.5-7.7); Eosinophil % 0.1 %; Lymphocyte % 3.3 %
[2019-06-09] MEDS: Memantine TAB* 10 MG PO SCH (10:34)
[2019-06-09] MEDS: Acetaminophen ADULT LIQ* 650 MG/20.3 ML UDC PO SCH ×4 (10:34→20:40)
--- NOTE | 2019-06-09 10:39 | PN ---
Subjective Date of Service: 06/09/19 Interval History: Called to floor due to nursing concern for patient discomfort; tachycardic and tachypneic, belly breathing. Discussed with the findings of likely aspiration pneumonia. Further discussed with and son, Roscoe, later. They would like to pursue comfort measures only, withdrawing antibiotics and home meds, and would like to withdraw PEG tube feeds. Patient unable to provide history as he is nonverbal. Awakens easily to voice. Family History: Unchanged from Admission Social History: Unchanged from Admission Past Medical History: Unchanged from Admission Objective Active Medications: Acetaminophen (Tylenol Adult Liq*) 650 mg PO Q4H [facility] Atropine Sulfate (Atropine 1% (Oral/Sl)*) 2 drop SL Q1H PRN PRN Reason: oral secretions Collagenase (Santyl 250 Units/Gm Oint*) 1 applic TOPICAL DAILY [facility] Last Admin: 06/09/19 09:42 Dose: 1 applic Finasteride (Proscar Tab*) 5 mg PEG TUBE QPM [facility] Last Admin: 06/08/19 20:11 Dose: 5 mg Vancomycin HCl 1,000 mg/ (Sodium Chloride) 250 mls @ 166.667 mls/hr IV Q8H [facility] Last Admin: 06/09/19 03:00 Dose: 166.667 mls/hr Lactated Ringer's (Lactated Ringers 1000 Ml Bag*) 1,000 mls @ 100 mls/hr IV PER RATE [facility] Last Admin: 06/09/19 05:20 Dose: 100 mls/hr Cefepime HCl (Maxipime 2 Gm In Dextrose Duplex (*)) 2 gm in 50 mls @ 100 mls/ hr IV Q8H [facility] Last Admin: 06/09/19 09:43 Dose: 100 mls/hr Metronidazole/Sodium Chloride (Flagyl 500 Mg Ivpb*) 500 mg in 100 mls @ 100 mls /hr IVPB Q8H [facility] Levothyroxine Sodium (Synthroid Tab*) 50 mcg PO 0600 [facility] Last Admin: 06/09/19 04:56 Dose: 50 mcg Memantine (Namenda Tab*) 10 mg PO BID [facility] Last Admin: 06/08/19 20:11 Dose: 10 mg Morphine Sulfate (Morphine Inj (Syringe)*) 2 mg IV Q2H PRN PRN Reason: severe pain or air hunger Pharmacy Consult (Vancomycin Per Pharmacy*) 1 note FOLLOW UP .VANC PER PHARMACY [facility]; Protocol Pharmacy Profile Note (Vancomycin Trough Check) 1 note FOLLOW UP ONCE ONE Stop: 06/10/19 06:31 Terazosin HCl (Hytrin Cap*) 1 mg PEG TUBE BEDTIME [facility] Last Admin: 06/08/19 20:11 Dose: 1 mg Additional Medications: no apparent distress Vital Signs - 8 hr 06/09/19 06/09/19 03:15 07:20 Temperature 98.7 F 99.3 F Pulse Rate 110 98 Respiratory 28 32 Rate Blood Pressure 104/41 100/42 (mmHg) O2 Sat by Pulse 99 98 Oximetry Oxygen Devices in Use Now: Nasal Cannula Appearance: Elderly white male, laying upright in bed, appearing in minimal distress, tachypneic and belly breathing Eyes: No Scleral Icterus, - - PERRL Ears/Nose/Mouth/Throat: Mucous Membranes Moist Neck: Trachea Midline, - - not using accessory muscles with respirations Respiratory: Symmetrical Chest Expansion and Respiratory Effort, - - minimal rhonchi consistent with upper airway oral secretions Cardiovascular: NL Sounds; No Murmurs; No JVD, - - tachycardic but regular rhythm Abdominal: - - abd soft, nontender, nondistended Extremities: - - +2 pedal edema bilaterally, +1 pitting edema pretibially; trace edema in bilateral UEs Skin: No Rash or Ulcers Neurological: - - alert, unable to assess orientation as patient is nonverbal Result Diagrams: 06/09/19 04:37 06/08/19 04:59 Microbiology and Other Data: Microbiology 06/06/19 11:22 Aerobic Blood Culture - Preliminary Blood Venous No Growth Day 2 Anaerobic Blood Culture - Preliminary No Growth Day 2 06/06/19 11:13 Aerobic Blood Culture - Preliminary Blood Venous No Growth Day 2 Anaerobic Blood Culture - Preliminary No Growth Day 2 06/04/19 23:36 Aerobic Blood Culture - Preliminary Blood Venous No Growth Day 3 Anaerobic Blood Culture - Final Proteus Mirabilis 06/05/19 02:10 Urine Culture - Final Urine Escherichia Coli 06/06/19 14:31 Skin and Soft Tissue MRSA/MSSA (PCR - Final Wound - Drainage Mrsa Positive S.aureus Positive Gram Stain - Final 06/05/19 00:00 Aerobic Blood Culture - Final Blood Venous Staphylococcus Epidermidis Anaerobic Blood Culture - Final Staphylococcus Epidermidis Blood MRSA/MSSA (PCR) - Final Mrsa Negative S.aureus Negative 06/05/19 09:16 Nasal Screen MRSA (PCR) - Final Nasal Mrsa Not Detected Assess/Plan/Problems-Billing Assessment: Mr. 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 - Patient Problems (1) Comfort measures only status Current Visit: Yes Status: Acute Code(s): Z51.5 - ENCOUNTER FOR PALLIATIVE CARE SNOMED Code(s): 54922463922606 Comment: -patient admitted with sepsis secondary to UTI and sacral decubitus ulcer infection. Found to have bacteremia and likely aspiration pneumonia. 4 days of antibiotics and little improvement, significantly worsened today with tachypnea and tachycardia -family requests comfort measures only today -prn morphine, ativan, and atropine; ordered IV and po morphine and ativan if needed -family requests stopping tube feeds, patient may have anything by mouth if requested (2) History of intracranial hemorrhage Current Visit: Yes Status: Acute Code(s): Z86.79 - PERSONAL HISTORY OF OTHER DISEASES OF THE CIRCULATORY SYSTEM SNOMED Code(s): 50519375324666405 Comment: -ICH in March 2019 with significant residual deficits including aphasia and dysphagia with PEG; bed bound (3) DNR (do not resuscitate) Current Visit: Yes Status: Acute Comment: Status and Disposition: Inpatient. With comfort measure only status, I anticipate this patient will quickly and at this time is not safe to be transported for hospice at [facility].
[2019-06-09] MEDS: Atropine 1% (ORAL/SL)* 15 ML BTL SL PRN ×4 (11:13→22:40)
[2019-06-09 11:43] VITALS: BP 109/45
[2019-06-09] MEDS ORDERED: Lorazepam PYXIS KEY PRN (12:26)
[2019-06-09] MEDS ORDERED: LORazepam INJ* 2 MG/ML 1 ML VIAL IV PUSH PRN (12:26)
[2019-06-09] MEDS: Morphine ORAL CONCENTRATE* 5 MG/0.25 ML ORAL.SYRIN SL PRN ×4 (13:13→22:40)
[2019-06-10] MEDS: Acetaminophen ADULT LIQ* 650 MG/20.3 ML UDC PO SCH ×5 (00:12→16:22)
[2019-06-10] MEDS: Morphine ORAL CONCENTRATE* 5 MG/0.25 ML ORAL.SYRIN SL PRN ×6 (00:40→18:05)
[2019-06-10] MEDS: Atropine 1% (ORAL/SL)* 15 ML BTL SL PRN ×3 (00:46→14:38)
[2019-06-10] MEDS ORDERED: Vancomycin Trough Check NOTE FOLLOW UP ONE (06:30)
[2019-06-10] MEDS: LORazepam TAB(*) 1 MG PO PRN ×2 (08:18→16:22)
[2019-06-10] MEDS ORDERED: Morphine INJ* 4 MG/ML 1 ML SYRINGE (NEW SYRINGE VERSION) IV PRN (11:22)
[2019-06-10] MEDS: Morphine ORAL CONCENTRATE* 5 MG/0.25 ML ORAL.SYRIN PO PRN ×3 (12:33→17:04)
--- NOTE | 2019-06-10 13:15 | PN ---
Subjective Date of Service: 06/10/19 Interval History: Patient is nonverbal. believes he appears more comfortable today with morphine use. Sons from out of state are both coming today. Family History: Unchanged from Admission Social History: Unchanged from Admission Past Medical History: Unchanged from Admission Objective Active Medications: Acetaminophen (Tylenol Adult Liq*) 650 mg PO Q4H [facility] Last Admin: 06/10/19 10:31 Dose: Not Given Atropine Sulfate (Atropine 1% (Oral/Sl)*) 2 drop SL Q1H PRN PRN Reason: oral secretions Last Admin: 06/10/19 08:19 Dose: 2 drp Lorazepam (Ativan Tab(*)) 1 mg PO Q3H PRN PRN Reason: Anxiety/agitation Last Admin: 06/10/19 08:18 Dose: 1 mg Miscellaneous (Ativan Pyxis Jenkins) 1 ea N/A .ATIVAN IV JENKINS PRN PRN Reason: PYXIS JENKINS Morphine Sulfate (Morphine Oral Concentrate*) 5 mg SL Q2H PRN PRN Reason: pain/air hunger Last Admin: 06/10/19 11:15 Dose: 5 mg Morphine Sulfate (Morphine Inj (Syringe)*) 4 mg IV Q2H PRN PRN Reason: severe pain or air hunger Morphine Sulfate (Morphine Oral Concentrate*) 10 mg PO Q2H PRN PRN Reason: pain/air hunger Last Admin: 06/10/19 12:33 Dose: 10 mg Additional Medications: no apparent distress Vital Signs - 8 hr 06/10/19 06/10/19 06/10/19 06:06 07:15 08:00 Respiratory 32 36 30 Rate 06/10/19 06/10/19 06/10/19 08:18 08:59 10:32 Respiratory 30 30 30 Rate 06/10/19 06/10/19 11:15 12:33 Respiratory 30 32 Rate Oxygen Devices in Use Now: Simple Face Mask Appearance: Elderly white male, laying in hospital bed, appearing comfortable and in NAD Eyes: No Scleral Icterus, - - PERRL Ears/Nose/Mouth/Throat: Mucous Membranes Moist Neck: Trachea Midline Respiratory: Symmetrical Chest Expansion and Respiratory Effort, - - rhonchi throughout consistent with upper airway oral secretions Cardiovascular: RRR, - - pitting edema pedally Abdominal: - - abd soft, nontender, nondistended Neurological: - - patient asleep, alerted himself after coughing, not grimacing Result Diagrams: 06/09/19 04:37 06/08/19 04:59 Microbiology and Other Data: Microbiology 06/06/19 11:22 Aerobic Blood Culture - Preliminary Blood Venous No Growth Day 2 Anaerobic Blood Culture - Preliminary No Growth Day 2 06/06/19 11:13 Aerobic Blood Culture - Preliminary Blood Venous No Growth Day 2 Anaerobic Blood Culture - Preliminary No Growth Day 2 06/04/19 23:36 Aerobic Blood Culture - Preliminary Blood Venous No Growth Day 3 Anaerobic Blood Culture - Final Proteus Mirabilis 06/05/19 02:10 Urine Culture - Final Urine Escherichia Coli 06/06/19 14:31 Skin and Soft Tissue MRSA/MSSA (PCR - Final Wound - Drainage Mrsa Positive S.aureus Positive Gram Stain - Final 06/05/19 00:00 Aerobic Blood Culture - Final Blood Venous Staphylococcus Epidermidis Anaerobic Blood Culture - Final Staphylococcus Epidermidis Blood MRSA/MSSA (PCR) - Final Mrsa Negative S.aureus Negative 06/05/19 09:16 Nasal Screen MRSA (PCR) - Final Nasal Mrsa Not Detected Assess/Plan/Problems-Billing Assessment: Mr. Ricardo is an 83 yo M with PMH of HTN, dementia, hypothyroidism, and ICH in March 2019 with significant residual deficits making him dysphagic, aphasic , and wheelchair bound; who presented to the ED with AMS and was found to have a catheter-related UTI, bacteremia, and likely aspiration pneumonia. - Patient Problems (1) Comfort measures only status Current Visit: Yes Status: Acute Code(s): Z51.5 - ENCOUNTER FOR PALLIATIVE CARE SNOMED Code(s): 03869098986719 Comment: -patient admitted with sepsis secondary to UTI and sacral decubitus ulcer infection. Found to have bacteremia and likely aspiration pneumonia. 4 days of antibiotics and little improvement, significantly worsened today with tachypnea and tachycardia -family requests comfort measures only today -prn morphine, ativan, and atropine; IV access lost overnight; SL and po meds per PEG tube -family requests stopping tube feeds, patient may have anything by mouth if requested (2) DNR (do not resuscitate) Current Visit: Yes Status: Acute Comment: Status and Disposition: Inpatient. Comfort measures only. Appears safe for transport today and could return to [facility] as comfort care. However, due to medication issues will plan for this tomorrow morning
[2019-06-10] MEDS ORDERED: Morphine ORAL CONCENTRATE* 5 MG/0.25 ML ORAL.SYRIN PO PRN (18:24)
--- NOTE | 2019-06-10 20:51 | PN ---
Progress Note - Progress Note Date of Service: 06/10/19 Note: Note: Called to see by nurses, they report he at 20:15. Patient has dementia, h/o aneurysm, is here with UTI/sepsis, DNR, and comfort measures only. Patient has no apical pulse, no spontaneous respirations, no carotid pulse. Family in attendance. Spoke with Elinor (Shravan) Time of 20:15, time of confirmation 20:40. No home chosen. No wish for autopsy. Nurse will call organ donation line.
--- NOTE | 2019-06-11 08:07 | DS ---
DISCHARGE SUMMARY: DATE OF ADMISSION: 06/05/19 DATE OF : 06/10/19 ATTENDING PROVIDER: Dr. Pulliam * (DICTATED BY ELLIOT HERRON) PRIMARY DIAGNOSES: Sepsis secondary to catheter-associated urinary tract infection, infected sacral decubitus ulcer, and likely aspiration pneumonia with bacteremia secondary to sacral decubitus ulcer. SECONDARY DIAGNOSES: 1. Intracranial hemorrhage in March 2019 with residual deficits making aphasic, dysphagic, and wheelchair bound with PEG tube for feeding. 2. Hypertension. 3. Dementia. 4. Hypothyroidism. 5. Aspiration pneumonia HISTORY OF PRESENT ILLNESS/HOSPITAL COURSE: Bhavesh Ricardo was an 83-year- old white male with past medical history significant for intracranial hemorrhage with residual deficits of aphasia, dysphagia, and wheelchair bound, dementia, hypertension, hypothyroidism, who presented to emergency department on 06/04/19 from [facility] where he had been a resident for approximately 6 weeks. He was admitted to the hospital on 06/05/19. Please see admitting history and physical. for further details. In brief, he was found to have a catheter-associated UTI, infected sacral decubitus wound on the right side and bacteremia, blood culture positive for proteus and Staph epidermidis, though Staph epidermidis was slightly possible contamination. Additionally, later in his hospital stay suspected aspiration pneumonia. He was on broad-spectrum antibiotics during this hospital course and continued to be quite febrile, tachycardic, and he was beginning to become hypotensive as well as his status progressed, ultimately upon discussion with the patient's , who is his healthcare proxy, the decision was made to make the patient comfort measures only and his antibiotics were withdrawn as well as his normal home medications. He on 06/10/[address] Herb Pulliam confirmed expiration of the patient on 06/10/19. DISCHARGE DISPOSITION: . TIME SPENT ON THIS DISCHARGE SUMMARY: Less than 30 minutes. CONDITION ON DISCHARGE: . ELLIOT HERRON [id number]/[facility] #: [id number] MTDD
== END 2019-06-10 20:15 | disposition expired | DRG 698 ==
LOC: ED 22:56 → MED 06-05 04:56
PROVIDERS: ADMIT Student in an Organized Health Care Education/Training Program; ATTEND Internal Medicine
DX: T83.511A Infection and inflammatory reaction due to indwelling urethral catheter, initial encounter (principal); A41.1 Sepsis due to other specified staphylococcus; J69.0 Pneumonitis due to inhalation of food and vomit; G93.41 Metabolic encephalopathy; A41.59 Other Gram-negative sepsis; N39.0 Urinary tract infection, site not specified; B96.20 Unspecified Escherichia coli [E. coli] as the cause of diseases classified elsewhere; L89.159 Pressure ulcer of sacral region, unspecified stage; B95.62 Methicillin resistant Staphylococcus aureus infection as the cause of diseases classified elsewhere; B96.6 Bacteroides fragilis [B. fragilis] as the cause of diseases classified elsewhere; Z66 Do not resuscitate; I69.320 Aphasia following cerebral infarction; I69.391 Dysphagia following cerebral infarction; R13.10 Dysphagia, unspecified; F03.90 Unspecified dementia, unspecified severity, without behavioral disturbance, psychotic disturbance, mood disturbance, and anxiety; E03.9 Hypothyroidism, unspecified; I10 Essential (primary) hypertension; Z51.5 Encounter for palliative care; E78.5 Hyperlipidemia, unspecified; Z96.649 Presence of unspecified artificial hip joint; Z93.1 Gastrostomy status; Z99.3 Dependence on wheelchair; Z82.49 Family history of ischemic heart disease and other diseases of the circulatory system; Z82.3 Family history of stroke; Z83.3 Family history of diabetes mellitus; Z79.899 Other long term (current) drug therapy
CPT/HCPCS: 36415; 71045; 74176; 76705; 80048; 80053; 80202; 81003; 81015; 83605; 83735; 84484; 85025; 85610; 85730; 87040; 87070; 87077; 87086; 87150; 87186; 87205; 87640; 87641; 99284; A9270-GY; J0692; J0696; J2270; J3370; J3475; J3480; J3490